=== PATIENT | female | born 1950 | race African-American/Black ===

== ENCOUNTER 2017-03-09 01:35 | Inpatient (IN) | payer BC, MEDICARE ==
[2017-03-09] VITALS (26 sets, daily range): BP systolic 114–206; BP diastolic 77–111
[~2017-03-09] VITALS: Ht 167.6 cm; Wt 65.8 kg
[~2017-03-09 01:35] MED LIST: CLON0.1T PO; METF500T4 PO
--- NOTE | 2017-03-09 01:40 | NUR ---
PT A/OX4 PT C/O SOB AND DIFFICULTY BREATHING X 3 DAYS, PT STATES SHE HAS BEEN USING HER INHALERS AND HER NEBULIZERS BUT THEY ARE NOT WORKING AND THE SOB IS GETTING WORSE, PT ON MONITOR, RT AND MD AT BEDSIDE, IV PLACED, LABS DRAWN, PT IN GOWN, PT GIVEN 5MG OF ALBUTEROL PRIOR TO ARRIVAL BY EMS, WILL CONTINUE TO MONITOR.
[2017-03-09] MEDS ORDERED: IV NS 0.9% 500 ML IV ONE (01:45)
[2017-03-09] MEDS ORDERED: IV SET PRIMARY 1 EA INFUS.SET MC ONE (01:45)
[2017-03-09] MEDS ORDERED: ASPIRIN 81 MG TAB.CHEW ONE (01:45)
[2017-03-09] MEDS ORDERED: methylPREDNISolone SOD SUCC 125 MG/2ML VIAL ONE (01:45)
[2017-03-09] MEDS ORDERED: IPRATROPIUM NEB FS 0.5 MG/2.5 ML AMPUL.NEB ONE (01:47)
[2017-03-09] MEDS ORDERED: ALBUTEROL FS 2.5 MG/3 ML VIAL.NEB ONE (01:47)
[2017-03-09] MEDS ORDERED: NITROGLYCERIN PACKET 1 GM PACKET ONE (01:52)
[2017-03-09 01:58] LABS: BASOPHILS # (AUTO) 0.1 /CMM (0.0-0.2); EOSINOPHILS # (AUTO) 1.2 /CMM (0.0-0.7); EOSINOPHILS % (AUTO) 13.6 % (0.0-6.0); HEMATOCRIT 44 % (33-45); HEMOGLOBIN 14.1 g/dL (11.5-14.8); LYMPHOCYTES # (AUTO) 2.6 /CMM (0.8-4.8); LYMPHOCYTES % (AUTO) 30.3 % (20.0-44.0); MEAN CORPUSCULAR HEMOGLOBIN 30 PG (26.0-33.0); MEAN CORPUSCULAR HGB CONC 32 g/dl (31.0-36.0); MEAN CORPUSCULAR VOLUME 95 fL (82-100); MONOCYTES # (AUTO) 0.6 /CMM (0.1-1.30); MONOCYTES % (AUTO) 6.7 % (2.0-12.0); NEUTROPHILS # (AUTO) 4.2 /CMM (1.8-8.9); NEUTROPHILS % (AUTO) 48.4 % (43.0-81.0); PLATELET COUNT (AUTO) 381 /CMM (150-450); RDW COEFFICIENT OF VARIATION 14.9 (11.5-15.0); RED BLOOD CELL COUNT(AUTO) 4.66 MIL/uL (4.0-5.2); WHITE BLOOD COUNT (AUTO) 8.7 K/uL (4.3-11.0)
[2017-03-09] MEDS ORDERED: ALBUTEROL FS 2.5 MG/3 ML VIAL.NEB CONTNEB ONE (02:00)
[2017-03-09] MEDS ORDERED: NITROGLYCERIN PACKET 1 GM PACKET TD ONE (02:00)
[2017-03-09] MEDS ORDERED: IPRATROPIUM NEB FS 0.5 MG/2.5 ML AMPUL.NEB NEB ONE (02:00)
[2017-03-09] MEDS ORDERED: ASPIRIN 81 MG TAB.CHEW PO ONE (02:00)
[2017-03-09] MEDS ORDERED: methylPREDNISolone SOD SUCC 125 MG/2ML VIAL IV ONE (02:00)
[2017-03-09] MEDS ORDERED: IV NS 0.9% 500 ML BAG IV ONE (02:00)
--- NOTE | 2017-03-09 02:04 | NUR ---
RT NOTE PT PLACED ON BIPAP PER MD WAITE. SETTINGS PRESCRIBED. ALARMS SET PER PROTOCOL AND AUDIBLE. AMBU BAG AT BEDSIDE. PT AWAKE AND ALERT. NO DISTRESS NOTED AT MOMENT, WILL CONTINUE TO MONITOR. Addendum: 03/09/17 at 0207 by ABRAHAM MCKENZIE RT Amended: Links added.
[2017-03-09 02:08] LABS: POTASSIUM 3.7 mmol/L (3.5-5.1)
[2017-03-09 02:09] LABS: CALCIUM, SERUM 9.2 mg/dL (8.5-10.1); CREATININE 1.2 mg/dL (0.6-1.3)
[2017-03-09 02:16] LABS: TROPONIN I 0.022 ng/mL (0.00-0.056)
[2017-03-09 02:23] LABS: ALBUMIN 3.8 g/dL (3.4-5.0); BILIRUBIN,DIRECT 0.1 mg/dL (0.0-0.2); BILIRUBIN,TOTAL 0.4 mg/dL (0.2-1.0); TOTAL PROTEIN, SERUM 8.5 g/dL (6.4-8.2)
[2017-03-09] MEDS ORDERED: CLONIDINE HCL 0.1 MG TABLET PO ONE (02:30)
[2017-03-09] MEDS ORDERED: TRAMADOL HCL 50 MG TABLET PO ONE (02:30)
[2017-03-09] MEDS ORDERED: ENALAPRILAT DIHYD. (2.5MG/ML) 1.25 MG/ML VIAL IV PRN (03:00)
[2017-03-09] MEDS ORDERED: IV 1/2NS 1000 ML 1,000 ML IV PRN (03:09)
[2017-03-09 03:12] LABS: ABG BASE EXCESS 1.9 mmol/L; ABG OXYGEN SATURATION 98.3 % (92.0-98.5); ABG PCO2 44.1 mmHg (35.0-45.0); ABG PH 7.405 (7.350-7.450); ABG PO2 141.6 mmHg (75.0-100.0); ABG TOTAL HEMOGLOBIN 13.4 G/dL (12.0-16.0); COHb 0.3 % (0.5-1.5); MetHb 0.5 % (0.0-1.5); O2Hb 97.5 % (94.0-97.0); PEEP,BG 5 cm H2O; SITE, ABG Right Radial; VENT MODE, BG ST 15/5 12 30%
[2017-03-09] MEDS ORDERED: TRAMADOL HCL 50 MG TABLET ONE (03:15)
--- NOTE | 2017-03-09 03:25 | NUR ---
Received patient from ED via [facility] via ACLS protocol with c/o SOB and Difficulty Breathing x 3 days.States been using her inhalers and nebulizers but not working anymore.Patient A/O X4.Ambulated from rolanta to bed and made comfortable.Placed on Bipap by RT with settings RATE 12,15/5,FIO2 30%.O2 saturation 96%.HOB elevated.Hooked to nurse monitoring shows SR/ST.BP elevated with expiratory and inspiratory wheezing.But patient verbalized feels a little better at this time.Admission process explained to patient and verbalized understanding.
[2017-03-09] MEDS ORDERED: HYDROCODONE/APAP 5/325MG 1 EACH TABLET PO PRN ×2 (03:30→13:30)
[2017-03-09] MEDS ORDERED: LEVOFLOXACIN 750 MG /D5W 150ML 750 MG in PREMIX 1 EA IV SCH (03:30)
[2017-03-09] MEDS ORDERED: ACETAMINOPHEN 325 MG TABLET PO PRN (03:30)
[2017-03-09] MEDS ORDERED: ONDANSETRON HCL/PF 4 MG/2 ML VIAL IVP PRN (03:30)
[2017-03-09] MEDS ORDERED: MAGNESIUM HYDROXIDE 30 ML UDC PO PRN (03:30)
[2017-03-09] MEDS ORDERED: MAG HYDROX/AL HYDROX/SIMETH 30 ML UDC PO PRN (03:30)
[2017-03-09] MEDS ORDERED: Z GUARD REMEDY 2 OZ OINT TP PRN (03:30)
[2017-03-09] MEDS ORDERED: LEVOFLOXACIN 750 MG /D5W 150ML 0 ML IV ONE (03:43)
[2017-03-09] MEDS ORDERED: IV 1/2NS 1000 ML 1,000 ML IV ONE (03:49)
[2017-03-09] MEDS ORDERED: SECONDARY IV SET 1 EA INFUS.SET MC ONE ×3 (03:50→22:01)
[2017-03-09] MEDS ORDERED: IV SET PRIMARY PUMP SET 1 EA INFUS.SET MC ONE (03:50)
[2017-03-09] MEDS: IV 1/2NS 1000 ML 1,000 ML IV PRN ×2 (03:56→22:07)
[2017-03-09] MEDS ORDERED: hydrALAZINE HCL IV 20 MG VIAL IV ONE (04:00)
[2017-03-09] MEDS ORDERED: DEXTROSE 50%-WATER 50 ML DISP.SYRIN IV PRN (04:00)
--- NOTE | 2017-03-09 04:00 | NUR ---
Patient verbalized she urinate frequently due to lasix and requesting Mehta catheter.GEAR STRAIGHTENER,Shellie notified with order.Fr.#16 Mehta Catheter inserted under aseptic technique draining clear yellow urine.
[2017-03-09] MEDS ORDERED: hydrALAZINE HCL IV 20 MG VIAL ONE (04:01)
--- NOTE | 2017-03-09 04:05 | NUR ---
Patient with elevated BP 206/104,178/103 called to Shellie ARAGON with order and carried out.
--- NOTE | 2017-03-09 04:24 | NUR ---
Karyn from [facility] regarding patient is candidate for severe sepsis criteria. With orders to do Blood Culture and initial lactic acid.If more than 2 then do another lactic acid.
[2017-03-09] MEDS ORDERED: LORAZEPAM INJ 2 MG/ML VIAL ONE (04:41)
[2017-03-09] MEDS: IPRATROPIUM NEB FS 0.5 MG/2.5 ML AMPUL.NEB NEB SCH ×5 (04:44→23:33)
[2017-03-09] MEDS: ALBUTEROL FS 2.5 MG/3 ML VIAL.NEB NEB SCH ×5 (04:44→23:33)
--- NOTE | 2017-03-09 04:46 | NUR ---
Patient anxious and tachycardic HR 120'S-130'S verbalized has panic attack.FOUNTAIN ATTENDANTShellie notified with order and carried.
[2017-03-09] MEDS ORDERED: LORAZEPAM INJ 2 MG/ML VIAL IV ONE (05:00)
[2017-03-09] MEDS ORDERED: CEFEPIME 2 GM in IV D5W 100 ML IV SCH (05:00)
--- NOTE | 2017-03-09 05:00 | NUR ---
Please note: Unable to give Maxipime IVPB at this time.Per Lisa Saravia she has only 1 Gram available.And to wait until 0700 AM when Pharmacist here.
--- NOTE | 2017-03-09 06:00 | NUR ---
Patient requested Bipap to be removed.RT changed to 4L NC and tolerating well.No apparent distress noted at this time.
[2017-03-09 07:17] LABS: EOSINOPHILS % (AUTO) 0.2 % (0.0-6.0); HEMATOCRIT 38 % (33-45); HEMOGLOBIN 12.3 g/dL (11.5-14.8); LYMPHOCYTES # (AUTO) 0.5 /CMM (0.8-4.8); LYMPHOCYTES % (AUTO) 7.1 % (20.0-44.0); MEAN CORPUSCULAR HEMOGLOBIN 31 PG (26.0-33.0); MEAN CORPUSCULAR HGB CONC 32 g/dl (31.0-36.0); MEAN CORPUSCULAR VOLUME 95 fL (82-100); MONOCYTES % (AUTO) 0.2 % (2.0-12.0); NEUTROPHILS # (AUTO) 7.1 /CMM (1.8-8.9); NEUTROPHILS % (AUTO) 92.5 % (43.0-81.0); PLATELET COUNT (AUTO) 351 /CMM (150-450); RDW COEFFICIENT OF VARIATION 14.4 (11.5-15.0); RED BLOOD CELL COUNT(AUTO) 4.03 MIL/uL (4.0-5.2); WHITE BLOOD COUNT (AUTO) 7.7 K/uL (4.3-11.0)
[2017-03-09 07:33] LABS: CALCIUM, SERUM 8.9 mg/dL (8.5-10.1)
[2017-03-09 07:34] LABS: TROPONIN I 0.038 ng/mL (0.00-0.056)
--- NOTE | 2017-03-09 07:37 | NUR ---
Patient resting in no acute distress.VS stable.ST 110.Denies pain.IVF infusing well.Lactic acid 1.5.Report given to ALYSSA ENGLE for continuity of care.
--- NOTE | 2017-03-09 08:00 | NUR ---
ICU/RN INITIAL NOTES,AM RECEIVED REPORT FROM NIGHT NURSE. PT ALERT, AWAKE, FOLLOW COMMANDS. PT 4 LITERS NASAL CANULA, NO ACUTE DISTRESS NOTED AT THIS TIME. PT WAS ON BIPAP OVER NIGHT, NOW TOLERATING NASAL CANULA, WELL. MAINTAINING 02 SAT >95%. PT SINUS TACHY ON TELE. RICH IN PLACE, DRAINING YELLOW URINE. BP ELEVATED, MD AWARE.NEW ORDERS RECEIVED. SAFETY MEASURES TAKEN, BED IN LOW POSITION, SIDE RAILS UP, CALL LIGHT WITHIN REACH. WILL CONTINUE CARE.
[2017-03-09] MEDS: methylPREDNISolone SOD SUCC 125 MG/2ML VIAL IV SCH ×3 (08:12→17:11)
[2017-03-09] MEDS: VALSARTAN 80 MG TABLET PO SCH ×2 (08:13→08:28)
[2017-03-09] MEDS: BLOOD SUGAR DIAGNOSTIC 1 EACH STRIP IN SCH ×4 (08:18→22:00)
[2017-03-09] MEDS: INSULIN REGULAR, HUMAN 100 UNIT/ML 3 ML VIAL SQ PRN ×2 (08:20→12:36)
[2017-03-09] MEDS: HEPARIN SODIUM, PORCINE 5000 UNITS/1 ML VIAL SQ SCH ×2 (08:21→21:00)
[2017-03-09] MEDS: ASPIRIN 81 MG TAB.CHEW PO SCH (08:21)
[2017-03-09] MEDS: PANTOPRAZOLE 40 MG TABLET.DR PO SCH (08:21)
[2017-03-09 08:23] LABS: MAGNESIUM 1.6 mg/dL (1.8-2.4); PHOSPHORUS 2.9 mg/dL (2.5-4.9)
[2017-03-09 08:33] LABS: THYROID STIMULATING HORMONE 0.41 uIU/mL (0.358-3.74)
[2017-03-09] MEDS: LISINOPRIL (10MG) 10 MG TABLET PO SCH ×2 (08:45→17:11)
[2017-03-09] MEDS: CEFEPIME 2 GM in IV D5W 100 ML IV SCH ×2 (10:37→22:07)
--- NOTE | 2017-03-09 11:20 | NUR ---
ICU/RN: RECEIVED ORDERS FOR CTA CHEST TO R/O DISSECTION AND V/Q SCAN. PT REFUSED STATING "I ALMOST ONE TIME WHEN I GOT THAT DYE IN ME. I DON'T WANT ANY TYPE OF DYE IN ME, ORAL OR IV" RISKS VS BENEFITS OF PROCEDURE DISCUSSED WITH PT. PT CONTINUES TO REFUSE PROCEDURE. AWARE. WILL CONTINUE TO MONITOR. NO ACUTE S/S OF DISTRESS NOTED. WILL CONTINUE TO CLOSELY MONITOR
--- NOTE | 2017-03-09 12:20 | NUR ---
ICU/RN: PT REFUSED INSULIN. EDUCATED PT. WILL REINFORCE
[2017-03-09] MEDS: Magnesium 1GM/D5W 100ML PREMIX 100 ML IV SCH ×2 (12:29→13:38)
--- NOTE | 2017-03-09 13:30 | NUR ---
ICU/RN: REPORT ENDORSED TO LEANNA SHAH. PT TRANSFERRED PER ACLS GUIDELINES. ALL NEEDS MET. SAFETY MEASURES TAKEN. ALL BELONGINGS AND MEDICATIONS TRANSFERRED WITH PT.
--- NOTE | 2017-03-09 13:42 | NUR ---
CORE SHAPER SIDES NOTE RECEIVED FROM ICU ALERT ,ORIENTED X3, PLACED ON TELE MONITOR SR 94, VS TAKEN NO SOB NOTED, PLACED ON IVF ORDERED HOSPITAL ORIENTATION DONE,CALL LIGHT WITHIN REACH , ALL NEEDS ATTENDED
[2017-03-09] MEDS: TRAMADOL HCL 50 MG TABLET PO PRN ×3 (14:23→22:19)
--- NOTE | 2017-03-09 14:30 | NUR ---
ONLINE PROGRAM COORDINATOR NOTE REPORT GIVEN TO HOWIE SHAH
--- NOTE | 2017-03-09 14:35 | NUR ---
PURLER NOTE C\O GENERALIZED PAIN BODY ,CALLED TO CORMIER WITH ORDER TRAMADOL ORDER GARRIED OUT , GIVEN ORDERED ,CLARIFIED SOLUMEDROL ORDER, NO ACTIVE ALLERGY FROM PREDNISONE OK TO GIVE PHARMACIST AWARE
--- NOTE | 2017-03-09 15:42 | NUR ---
RN INITIAL NOTE RECEIVED PT TRANSFER OF CARE FROM [facility]. PT AWAKE, ALERT AND ORIENTED. ABLE TO MAKE NEEDS KNOWN. NO S/S OF RESPIRATORY DISTRESS OR SOB. RESPIRATIONS ARE EVEN AND UNLABORED. NO IV SITE AT THIS TIME. NO S/S OF PAIN OR DISCOMFORT. SKIN IS WARM AND DRY TO TOUCH. CALL LIGHT AND BELONGINGS WITHIN REACH. SAFETY PRECAUTIONS IMPLEMENTED. BED IN LOCKED, LOW POSITION WITH TWO SIDE RAILS UP. WILL CONTINUE TO MONITOR.
[2017-03-09] MEDS: METFORMIN 500 MG TABLET PO SCH (17:11)
--- NOTE | 2017-03-09 19:17 | NUR ---
RN CLOSING NOTE ALL MD ORDERS CARRIED OUT. PT KEPT CLEAN AND DRY. SAFETY PRECAUTIONS IN PLACE AT ALL TIMES. REPORT GIVEN TO PM RN FOR ZOLTAN,.
--- NOTE | 2017-03-09 19:30 | NUR ---
RN INITIAL NOTES RECEIVED REPORT FROM DAY NURSE HOWIE. PATIENT IS AWAKE, ALERT AND ORIENTED X4, FOLLOWS COMMANDS. PATIENT ON O2 @ 4 LPM VIA NASAL CANULA, NO ACUTE DISTRESS NOTED AT THIS TIME. MAINTAINING 02 SAT >94%. PT SINUS TACHY ON TELE. RICH IN PLACE, DRAINING YELLOW URINE. SAFETY MEASURES TAKEN, BED IN LOWEST AND LOCKED POSITION, SIDE RAILS UP, CALL LIGHT WITHIN REACH. WILL CONTINUE TO CLOSELY MONITOR
--- NOTE | 2017-03-09 20:45 | NUR ---
RN NOTES TECH AT BEDSIDE TO PERFORM VENOUS DOPPLER, RESULT NEGATIVE
--- NOTE | 2017-03-09 21:00 | NUR ---
RN NOTES PATIENT REFUSED BLOOD SUGAR TO BE CHECKED, "STATING THEY KEEP CHECKING IT ALL THE TIME. I DON'T WANT TO BE POKED AGAIN, AND I ALREADY TOOK MY METFORMIN, I DON'T WANT INSULIN EITHER" PATIENT ALSO REFUSED HEPARIN, STATING "I ALREADY TOOK IT EARLIER THIS MORNING, I DONT WANT IT, AND THE DOPPLER WAS NEGATIVE, I DONT WANT IT." PATIENT TEACHING RENDERED REGARDING THE RISKS AND CONSEQUENCES OF REFUSING PRESCRIBED MEDICATION. PATIENT VERBALIZES UNDERSTANDING OF TEACHING, BUT STILL STRONGLY REFUSES. WILL NOTIFY MD AND CLOSELY MONITOR
[2017-03-10] VITALS: BP 131/84
[2017-03-10] MEDS: ALBUTEROL FS 2.5 MG/3 ML VIAL.NEB NEB SCH ×4 (03:19→10:53)
[2017-03-10] MEDS: IPRATROPIUM NEB FS 0.5 MG/2.5 ML AMPUL.NEB NEB SCH ×4 (03:19→10:53)
--- NOTE | 2017-03-10 03:30 | NUR ---
RN NOTES PATIENT REFUSED BREATHING TREATMENT, STATING "LEAVE ME ALONE, IM TRYING TO SLEEP." EXPLAINED RISKS AND CONSEQUENCES OF MEDICATION REFUSAL. PATIENT VERBALIZES UNDERSTANDING, BUT STILL STRONGLY REFUSES
--- NOTE | 2017-03-10 04:00 | NUR ---
RN NOTES PATIENT REFUSES VITAL SIGNS TO BE CHECKED AT THIS TIME, STATING "LEAVE ME ALONE, I'M TRYING TO SLEEP"
--- NOTE | 2017-03-10 05:45 | NUR ---
RN NOTES PATIENT WOKE UP WITH SOB, WHEEZES HEARD UPON AUSCULTATION. JESSICA PEDROZA AT BEDSIDE TO ADMINISTER BREATHING TREATMENT.
--- NOTE | 2017-03-10 07:10 | NUR ---
RN CLOSING NOTES PATIENT RESTING IN BED AT THIS TIME, ASKING TO SPEAK TO THE MD SOON POSSIBLE, BREATHING TREATMENT ADMINISTERED BY RT. WILL ENDORSE THE PATIENT TO THE AM SHIFT NURSE FOR ZOLTAN
--- NOTE | 2017-03-10 07:15 | NUR ---
RN INITIAL NOTE PT RECEIVED IN BED, AWAKE ALERT AND ORIENTED. ABLE TO MAKE NEEDS KNOWN. SINUS TACHY ON TELE MONITOR. RICH CATHETER DRAININING TO GRAVITY. SKIN WARM AND DRY TO TOUCH. IV SITE FLUSHED AND PATENT. SAFETY PRECAUTIONS IN PLACE AT ALL TIMES. CALL LIGHT AND BELONGINGS WITHIN EASY REACH. WILL CONTINUE TO MONITOR.
[2017-03-10 08:00] VITALS: BP 136/63
[2017-03-10] MEDS: ASPIRIN 81 MG TAB.CHEW PO SCH (08:34)
[2017-03-10] MEDS: BLOOD SUGAR DIAGNOSTIC 1 EACH STRIP IN SCH (08:34)
[2017-03-10] MEDS: TRAMADOL HCL 50 MG TABLET PO PRN (08:35)
[2017-03-10] MEDS: METFORMIN 500 MG TABLET PO SCH (08:35)
[2017-03-10] MEDS: PANTOPRAZOLE 40 MG TABLET.DR PO SCH (08:35)
[2017-03-10 08:37] VITALS: BP 136/63
[2017-03-10] MEDS: LISINOPRIL (10MG) 10 MG TABLET PO SCH (08:37)
[2017-03-10] MEDS: methylPREDNISolone SOD SUCC 125 MG/2ML VIAL IV SCH (08:38)
[2017-03-10] MEDS: CEFEPIME 2 GM in IV D5W 100 ML IV SCH (08:38)
[2017-03-10] MEDS: HEPARIN SODIUM, PORCINE 5000 UNITS/1 ML VIAL SQ SCH (08:39)
[2017-03-10] MEDS: INSULIN REGULAR, HUMAN 100 UNIT/ML 3 ML VIAL SQ PRN (08:40)
[2017-03-10 09:27] LABS: *SPE A/G RATIO 1.1 (0.7-1.7); *SPE ALBUMIN 3.4 g/dL (2.9-4.4); *SPE ALPHA-1-GLOBULIN 0.2 g/dL (0.0-0.4); *SPE GLOBULIN, TOTAL 3.1 g/dL (2.2-3.9); *SPE M-SPIKE Not Observed g/dL (Not Observed); *SPE PROTEIN TOTAL 6.5 g/dL (6.0-8.5); *SPEGAMMA GLOBULIN 0.9 g/dL (0.4-1.8)
[2017-03-10 09:58] LABS: BASOPHILS # (AUTO) 0.1 /CMM (0.0-0.2); BASOPHILS % (AUTO) 0.3 % (0.0-2.0); EOSINOPHILS % (AUTO) 0.1 % (0.0-6.0); HEMATOCRIT 37 % (33-45); HEMOGLOBIN 11.9 g/dL (11.5-14.8); LYMPHOCYTES # (AUTO) 1.5 /CMM (0.8-4.8); LYMPHOCYTES % (AUTO) 7.5 % (20.0-44.0); MEAN CORPUSCULAR HEMOGLOBIN 31 PG (26.0-33.0); MEAN CORPUSCULAR HGB CONC 32 g/dl (31.0-36.0); MEAN CORPUSCULAR VOLUME 95 fL (82-100); MONOCYTES # (AUTO) 0.5 /CMM (0.1-1.30); MONOCYTES % (AUTO) 2.5 % (2.0-12.0); NEUTROPHILS # (AUTO) 18.4 /CMM (1.8-8.9); NEUTROPHILS % (AUTO) 89.6 % (43.0-81.0); PLATELET COUNT (AUTO) 358 /CMM (150-450); RDW COEFFICIENT OF VARIATION 14.3 (11.5-15.0); RED BLOOD CELL COUNT(AUTO) 3.92 MIL/uL (4.0-5.2); WHITE BLOOD COUNT (AUTO) 20.6 K/uL (4.3-11.0)
[2017-03-10 10:14] LABS: BILIRUBIN,TOTAL 0.3 mg/dL (0.2-1.0); CALCIUM, SERUM 8.8 mg/dL (8.5-10.1); CREATININE 1.2 mg/dL (0.6-1.3); MAGNESIUM 1.9 mg/dL (1.8-2.4); PHOSPHORUS 3.7 mg/dL (2.5-4.9); POTASSIUM 4.4 mmol/L (3.5-5.1); TOTAL PROTEIN, SERUM 6.9 g/dL (6.4-8.2)
[2017-03-10 10:17] LABS: TROPONIN I 0.041 ng/mL (0.00-0.056)
[2017-03-10 10:23] LABS: VIT D, 25-HYDROXY 41.1 ng/mL (30.0-100.0)
[2017-03-10 10:37] LABS: THYROID STIMULATING HORMONE 0.29 uIU/mL (0.358-3.74)
[2017-03-10 10:49] LABS: BAND % (MANUAL) 2 % (0.0-5.0); LYMPHOCYTES % (MANUAL) 10 % (16-48); MONOCYTES % (MANUAL) 3 % (0-11.0); NEUTROPHILS % (MANUAL) 85 (42-76)
[2017-03-10 10:52] LABS: PLATELET ESTIMATE ADEQUATE
--- NOTE | 2017-03-10 13:18 | NUR ---
RN CLOSING NOTE PT LEFT AMA. PAPERWORK COMPLETED. REFUSED PICTURES. IV, ID AND RICH CATHETER REMOVED. PICKED UP BY TAXI.
== END 2017-03-10 13:14 | disposition left against medical advice (07) | DRG 140 ==
LOC: ER 01:36 → ICU 02:52 → TELE1 13:20
PROVIDERS: ADMIT Contractor; ATTEND Contractor
PROC: 5A09357 Assistance with Respiratory Ventilation, Less than 24 Consecutive Hours, Continuous Positive Airway Pressure (ICD-10-PCS; principal; 2017-03-09)
DX: J44.1 Chronic obstructive pulmonary disease with (acute) exacerbation (principal); J96.01 Acute respiratory failure with hypoxia; J96.02 Acute respiratory failure with hypercapnia; E87.2 Acidosis; K21.9 Gastro-esophageal reflux disease without esophagitis; E11.65 Type 2 diabetes mellitus with hyperglycemia; I10 Essential (primary) hypertension; J44.0 Chronic obstructive pulmonary disease with (acute) lower respiratory infection; Z87.891 Personal history of nicotine dependence; C34.90 Malignant neoplasm of unspecified part of unspecified bronchus or lung; I70.0 Atherosclerosis of aorta; J20.9 Acute bronchitis, unspecified; T38.0X5A Adverse effect of glucocorticoids and synthetic analogues, initial encounter
CPT/HCPCS: 36415; 36600; 70220-TC; 71010-TC; 80048-TC; 80053-TC; 80061-TC; 80076-TC; 82306; 82962-TC; 83605-TC; 83735-TC; 83880; 84100-TC; 84155; 84165; 84439-TC; 84443-TC; 84484-TC; 85025-TC; 85378-TC; 87040-TC; 87081-TC; 93307-TC; 93970-TC; A4216; A4606; A6402; J0360; J0692; J1644; J1815; J1956; J2060; J2930; J3475; J3490; J7040; J7060; Z7610

== ENCOUNTER 2017-03-18 07:30 | Inpatient (IN) | payer BC, MEDICARE ==
[~2017-03-18] VITALS: Ht 167.6 cm; Wt 76.2 kg
--- NOTE | 2017-03-18 07:30 | NUR ---
BIB RA C/O WHEEZING AND SOB FROM HOME. GIVEN BREATHING TX IN FIELD. NAD NOTED. PT AAO X4, AMB WITH STEADY GAIT. PAGED RT. DR STALEY AT BEDSIDE. PT PLACED IN GOWN AND MONITOR. CONTINUE TO MONITOR.
[2017-03-18] MEDS ORDERED: ALBUTEROL FS 2.5 MG/3 ML VIAL.NEB ONE (07:39)
[2017-03-18] MEDS ORDERED: IPRATROPIUM NEB FS 0.5 MG/2.5 ML AMPUL.NEB ONE (07:39)
[2017-03-18] MEDS ORDERED: Magnesium 1GM/D5W 100ML PREMIX 200 ML IV ONE ×2 (07:44→07:49)
[2017-03-18] MEDS ORDERED: IV SET PRIMARY PUMP SET 1 EA INFUS.SET MC ONE ×3 (07:49→14:50)
[2017-03-18] MEDS ORDERED: CEFTRIAXONE 1GM BAG (ER ONLY) 50 ML IV ONE (07:49)
[2017-03-18] MEDS ORDERED: ASPIRIN 325 MG TABLET ONE (07:49)
[2017-03-18] MEDS ORDERED: methylPREDNISolone SOD SUCC 125 MG/2ML VIAL ONE (07:49)
[2017-03-18 07:59] LABS: BASOPHILS % (AUTO) 0.3 % (0.0-2.0); EOSINOPHILS # (AUTO) 0.6 /CMM (0.0-0.7); EOSINOPHILS % (AUTO) 6.4 % (0.0-6.0); HEMATOCRIT 40 % (33-45); HEMOGLOBIN 12.7 g/dL (11.5-14.8); LYMPHOCYTES % (AUTO) 32.6 % (20.0-44.0); MEAN CORPUSCULAR HEMOGLOBIN 30 PG (26.0-33.0); MEAN CORPUSCULAR HGB CONC 32 g/dl (31.0-36.0); MEAN CORPUSCULAR VOLUME 95 fL (82-100); MONOCYTES # (AUTO) 0.8 /CMM (0.1-1.30); MONOCYTES % (AUTO) 8.3 % (2.0-12.0); NEUTROPHILS # (AUTO) 4.8 /CMM (1.8-8.9); NEUTROPHILS % (AUTO) 52.4 % (43.0-81.0); PLATELET COUNT (AUTO) 357 /CMM (150-450); RDW COEFFICIENT OF VARIATION 15.3 (11.5-15.0); RED BLOOD CELL COUNT(AUTO) 4.19 MIL/uL (4.0-5.2); WHITE BLOOD COUNT (AUTO) 9.1 K/uL (4.3-11.0)
[2017-03-18] MEDS ORDERED: methylPREDNISolone SOD SUCC 125 MG/2ML VIAL IV ONE (08:00)
[2017-03-18] MEDS ORDERED: IV NS 0.9% 1,000 ML BAG IV ONE (08:00)
[2017-03-18] MEDS ORDERED: AZITHROMYCIN 500 MG in IV D5W 250 ML IV ONE (08:00)
[2017-03-18] MEDS ORDERED: IPRATROPIUM NEB FS 0.5 MG/2.5 ML AMPUL.NEB NEB ONE (08:00)
[2017-03-18] MEDS ORDERED: ASPIRIN 325 MG TABLET PO ONE (08:00)
[2017-03-18] MEDS ORDERED: CEFTRIAXONE 1GM BAG (ER ONLY) 1 GM/50 ML PIGGYBACK IV ONE (08:00)
[2017-03-18] MEDS ORDERED: ALBUTEROL FS 2.5 MG/3 ML VIAL.NEB CONTNEB ONE (08:00)
[2017-03-18 08:09] LABS: CALCIUM, SERUM 8.7 mg/dL (8.5-10.1); CREATININE 1.4 mg/dL (0.6-1.3); POTASSIUM 3.9 mmol/L (3.5-5.1)
[2017-03-18 08:17] LABS: TROPONIN I 0.027 ng/mL (0.00-0.056)
[2017-03-18 08:21] LABS: ALBUMIN 3.4 g/dL (3.4-5.0); BILIRUBIN,DIRECT 0.1 mg/dL (0.0-0.2); BILIRUBIN,TOTAL 0.4 mg/dL (0.2-1.0); TOTAL PROTEIN, SERUM 7.7 g/dL (6.4-8.2)
[2017-03-18] MEDS ORDERED: TRAM50TA2 PO (08:48)
[2017-03-18] MEDS ORDERED: PANT40TA2 PO (08:48)
[2017-03-18] MEDS ORDERED: LISI-603 PO (08:48)
[2017-03-18] MEDS ORDERED: TRAMADOL HCL 50 MG TABLET ONE (08:56)
[2017-03-18] MEDS ORDERED: TRAMADOL HCL 50 MG TABLET PO ONE (09:00)
[2017-03-18] MEDS ORDERED: IV NS 0.9% 1,000 ML ONE (09:00)
--- NOTE | 2017-03-18 09:09 | NUR ---
PAGED DR ANGELA MARTINEZ FOR ADMISSION
--- NOTE | 2017-03-18 09:16 | NUR ---
REPORT GIVEN TO MARQUITA SHAH FOR ZOLTAN
[2017-03-18 09:55] VITALS: BP 146/90
[2017-03-18 10:00] VITALS: BP 146/90
--- NOTE | 2017-03-18 10:05 | NUR ---
MS/WRIST CLOSER NOTES ADMITTED THIS 66 Y/O FEMALE FROM ER, TO RM # [id number], WITH ADMISSION DX:COPD EXACERBATION, Hx: COPD, HTN, DM (TYPE 2), CHOLECYSTECTOMY, UNDER CARE OF DR. ANGELA MARTINEZ. PATIENT IS A/O x 4, NO SOB, RESPIRATION EVEN, UNLABORED, OXYGEN APPLIED VIA N/C 2 L/M, WITH SATURATION 100%, DENIES PAIN. BOTH PERIPHERAL IV LINES INTACT, PATENT. ORIENTED TO THE ROOM CALL LIGHT SYSTEM. FULL BODY ASSESSMENT DONE, KEPT CLEAN DRY, COMFORTABLE, NEEDS MET IN TIMELY MANNER WITH CALL LIGHT WITHIN EASY REACH.
[2017-03-18] MEDS ORDERED: MORPHINE SULFATE INJ 2 MG/ML DISP.SYRIN IV PRN (11:30)
[2017-03-18] MEDS ORDERED: DEXTROSE 50%-WATER 50 ML DISP.SYRIN IV PRN (11:30)
[2017-03-18] MEDS ORDERED: Z GUARD REMEDY 2 OZ OINT TP PRN (11:30)
[2017-03-18] MEDS ORDERED: ZOLPIDEM TARTRATE 5 MG TABLET PO PRN (11:30)
[2017-03-18] MEDS ORDERED: ACETAMINOPHEN 325 MG TABLET PO PRN (11:30)
[2017-03-18] MEDS ORDERED: MAGNESIUM HYDROXIDE 30 ML UDC PO PRN (11:30)
[2017-03-18] MEDS: MONTELUKAST SODIUM (10MG) 10 MG TABLET PO SCH ×2 (11:30→21:41)
[2017-03-18] MEDS ORDERED: ONDANSETRON HCL/PF 4 MG/2 ML VIAL IVP PRN (11:30)
[2017-03-18] MEDS: ENOXAPARIN SODIUM 30 MG/0.3 ML DISP.SYRIN SQ SCH (12:00)
[2017-03-18] MEDS ORDERED: LEVOFLOXACIN (750 MG) 750 MG TABLET PO SCH (12:00)
[2017-03-18] MEDS: BLOOD SUGAR DIAGNOSTIC 1 EACH STRIP IN SCH ×3 (12:05→21:41)
[2017-03-18] MEDS: INSULIN REGULAR, HUMAN 100 UNIT/ML 3 ML VIAL SQ PRN ×3 (12:12→21:51)
[2017-03-18] MEDS: methylPREDNISolone SOD SUCC 125 MG/2ML VIAL IV SCH ×2 (12:13→17:14)
[2017-03-18] MEDS: IPRATROPIUM NEB FS 0.5 MG/2.5 ML AMPUL.NEB NEB SCH ×3 (12:17→19:53)
[2017-03-18] MEDS: ALBUTEROL FS 2.5 MG/3 ML VIAL.NEB NEB SCH ×3 (12:17→19:53)
--- NOTE | 2017-03-18 12:20 | NUR ---
RN NOTES BLOOD SUGAR CHECKED BEFORE DINNER 164, 3 UNITS REGULAR INSULIN COVERAGE GIVEN PER SLIDING SCALE, NO CHANGES IN APPETITE NOTED, REFUSED LOVENOX INJECTION, AND ABG LAB TEST, EXPLAINED RISKS AND BENEFITS, VERBALIZED UNDERSTANDING, STRONGLY REFUSING, MADE AWARE
--- NOTE | 2017-03-18 12:20 | NUR ---
RT PT REFUSED ABG AT THIS TIME. SpO2 99%, HR 87. NO SIGNS OF DISTRESS NOTED AT THIS TIME. RN NOTIFIED AND AWARE. WILL CONTINUE TO MONITOR THE PATIENT FOR ANY CHANGES.
--- NOTE | 2017-03-18 13:05 | NUR ---
RN NOTES DR. MILLER AGREED TO INSERT F/C PER PATIENT'S REQUEST. PROCEDURE DONE, PATIENT TOLERATED WELL, ASEPTIC TECHNIQUES IMPLEMENTED THROUGHOUT PROCEDURE. , NOTED YELLOW, CLEAR URINE OUTPUT, 150 CC, WITHOUT SEDIMENTS. DENIES PAIN, COMFORTABLE, NEEDS MET, WITH CALL LIGHT WITHIN EASY REACH
[2017-03-18] MEDS: TRAMADOL HCL 50 MG TABLET PO PRN ×2 (14:57→22:07)
[2017-03-18] MEDS: IV NS 0.9% 1,000 ML IV PRN (15:43)
[2017-03-18 16:00] VITALS: BP 140/89
[2017-03-18] MEDS: LISINOPRIL (20MG) 20 MG TABLET PO SCH (16:45)
[2017-03-18] MEDS: FLUTICASONE/SALMETEROL DISKUS IH SCH ×2 (16:52→17:13)
--- NOTE | 2017-03-18 16:58 | NUR ---
RN NOTES LISINOPRIL ADMINISTERED ORDERED X1 PER PATIENT'S REQUEST, D/T PATIENT MISSED MORNING DOSE, BLOOD PRESSURE 140/89, 98, NO SOB, NO HEADACHE, DENIES CHEST PAIN, WILL CONTINUE TO MONITOR, AWARE
[2017-03-18] MEDS ORDERED: METFORMIN 500 MG TABLET PO SCH (17:00)
--- NOTE | 2017-03-18 17:21 | NUR ---
RN NOTES BLOOD SUGAR CHECKED BEFORE DINNER, 188, 3 UNITS REGULAR INSULIN GIVEN PER SLIDING SCALE, WITH EXCELLENT APPETITE
--- NOTE | 2017-03-18 18:58 | NUR ---
MS/RN CLOSING NOTES PATIENT IS IN THE BED, AWAKE, ALERT, ABLE TO MAKE NEEDS, NO SOB, DENIES CHEST PAIN, NO DISTRESS NOTED , COMFORTABLY RESTING IN THE BED, OXYGEN IN PLACE VIA N/C DELIVERING 2L/M CONTINUOUSLY, OS SATURATION 100 %. F/C INTACT, WITH 275 ML URINE OUTPUT, CLEAR YELLOW, WITHOUT SEDIMENTS. DENIES PAIN OR DISCOMFORT. KEPT CLEAN, DRY, COMFORTABLE, NEEDS MET IN TIMELY MANNER, BED IN LOW POSITION 2 SR UP FOR SAFETY, WITH CALL LIGHT WITHIN EASY REACH ALL THE TIME. ENDORSED TO THE MATERIAL SPREADER NURSE FOR ZOLTAN
--- NOTE | 2017-03-18 20:00 | NUR ---
RECEIVED PATIENT IN BED, ALERT AND ORIENTED X4, CALM, NO SOB, NO RESPIRATORY DISTRESS, ON O2 AT 2LPM VIA NC, ABDOMEN SOFT AND NON-TENDER, ACTIVE BOWEL SOUNDS, RIGHT WRIST PERIPHERAL LINE IS PATENT AND INFUSING WELL, RICH CATHETER IS DRAINING WELL OF CLEAR AND YELLOW URINE. KEPT SAFE AND COMFORTABLE, CALL LIGHT WITHIN REACH.
[2017-03-18 20:14] VITALS: BP 138/82
[2017-03-18 20:21] VITALS: BP 138/82
[2017-03-18 22:00] VITALS: BP 138/82
--- NOTE | 2017-03-18 22:30 | NUR ---
NOTED ORDER FROM DR. MARTINEZ REGARDING MRSA ISOLATION. CHARGE NURSE REVIEWED PREVIOUS MRSA SURVEILLANCE REPORT, PATIENT IS NEGATIVE TO MRSA. WILL CLARIFY WITH DR MARTINEZ.
[2017-03-19] MEDS: IPRATROPIUM NEB FS 0.5 MG/2.5 ML AMPUL.NEB NEB SCH ×7 (00:17→23:48)
[2017-03-19] MEDS: ALBUTEROL FS 2.5 MG/3 ML VIAL.NEB NEB SCH ×7 (00:17→23:48)
[2017-03-19] MEDS: IV NS 0.9% 1,000 ML IV PRN (04:37)
--- NOTE | 2017-03-19 05:42 | NUR ---
PATIENT REFUSED BLOOD DRAW, WILL TRY AGAIN LATER
[2017-03-19] MEDS: BLOOD SUGAR DIAGNOSTIC 1 EACH STRIP IN SCH ×4 (06:17→21:12)
[2017-03-19] MEDS: INSULIN REGULAR, HUMAN 100 UNIT/ML 3 ML VIAL SQ PRN (06:26)
--- NOTE | 2017-03-19 06:39 | NUR ---
PATIENT IN BED, ALERT AND AWAKE, NO SOB, NO RESPIRATORY DISTRESS, TOLERATING 02 AT 2LPM VIA NC, NO ADVERSE CHANGE OF CONDITION DURING SHIFT, NEEDS ATTENDED, CALL LIGHT WITHIN REACH.
--- NOTE | 2017-03-19 07:13 | NUR ---
MS/RN NOTES RECEIVED PATIENT IN BED, SLEEPING, NO /SX SOB, NO DISTRESS, OXYGEN IN PLACE VIA N/C 2 L/M, IV LINE INTACT ON RIGHT WRIST, WITH N/S 0.9% 75CC/H. COMFORTABLE IN THE BED, HOB ELEVATED, 2 SR UP FOR SAFETY, WITH CALL LIGHT WITHIN EASY REACH. WILL CONTINUE TO MONITOR ACCORDINGLY
[2017-03-19] MEDS ORDERED: PANTOPRAZOLE 40 MG TABLET.DR PO SCH (07:30)
[2017-03-19 08:00] VITALS: BP 129/79
[2017-03-19] MEDS: LISINOPRIL (20MG) 20 MG TABLET PO SCH (08:52)
[2017-03-19] MEDS: CEFTRIAXONE 1 G in IV D5W 50 ML IV SCH (08:52)
[2017-03-19] MEDS: TRAMADOL HCL 50 MG TABLET PO PRN ×2 (08:55→15:21)
[2017-03-19] MEDS: methylPREDNISolone SOD SUCC 125 MG/2ML VIAL IV SCH ×3 (08:55→17:52)
[2017-03-19] MEDS: PANTOPRAZOLE 40 MG TABLET.DR PO SCH (08:55)
[2017-03-19] MEDS: FLUTICASONE/SALMETEROL DISKUS IH SCH ×2 (08:55→18:02)
[2017-03-19] MEDS ORDERED: LISINOPRIL (20MG) 20 MG TABLET PO SCH (09:00)
[2017-03-19] MEDS ORDERED: SECONDARY IV SET 1 EA INFUS.SET MC ONE (09:08)
[2017-03-19 10:00] VITALS: BP 129/79
[2017-03-19] MEDS: ENOXAPARIN SODIUM 30 MG/0.3 ML DISP.SYRIN SQ SCH (12:00)
--- NOTE | 2017-03-19 12:12 | NUR ---
ALYSSA NOTES BLOOD SUGAR CHECKED, 149, INSULIN COVERAGE REFUSED, RISKS AND BENEFITS EXPLAINED, VERBALIZED UNDERSTANDING, STRONGLY REFUSING, AWARE. Addendum: 03/19/17 at 1215 by MICKEY ROSS RN PATIENT REFUSED LOVENOX INJECTION, RISKS AND BENEFITS EXPLAINED, MD BEJARANO
--- NOTE | 2017-03-19 13:16 | NUR ---
Social service consult requested by SUJEY Medrano for housing issues. Per H&P report by Dr. Fabian, patient is a 66-year old female with a PMHx of asthma, hypertension, CAD, COPD, diabetes mellitus, and TMJ. Patient currently lives in an apartment with her daughter. She reported being worried about her current housing situation. Patient was admitted to [facility] for COPD exacerbation. SW met with patient at bedside. She is alert and oriented x4. She appeared disheveled, her mood was euthymic, and her affect was congruent. Her thought process was coherent and goal oriented. She reported that she paid here rent and that her landlord is reporting that he lost it or did not receive it. Pt is worried she may be evicted. Pt reports have evidence that money order was sent to landlord. SW asked patient if she wanted the SW to assist and pt refused assistance. She stated that she was frustrated and wanted someone to speak with about. SW provided patient with emotional support/counseling. Patient then requested resources. SW agreed to provide patient with resources: dental, vision, and housing. Pt reported that she would like to be discharged back home: [address]; [place] [address]. Pt reported that she would need assistance with transportation due to a lack of funds.
[2017-03-19 16:02] VITALS: BP 151/81
--- NOTE | 2017-03-19 17:30 | NUR ---
RN NOTES PATIENT REFUSED BLOOD SUGAR CHECKING BEFORE DINNER, EXPLAINED RISKS AND CONSEQUENCES, VERBALIZED UNDERSTANDING, STRONGLY REFUSING
--- NOTE | 2017-03-19 19:13 | NUR ---
RN CLOSING NOTES PATIENT IS IN THE BED, AWAKE, ALERT, NO SOB, NO CHEST PAIN, RESTING COMFORTABLY. IV LINE ON RIGHT HAND INTACT, PATENT, RICH CATHETER WITH CLEAN YELLOW URINE NO SEDIMENTS, 950 ML OUTPUT. PAIN MEDICATION ADMINISTERED PRN PER PATIENT'S REQUEST. NEEDS MET IN TIMELY MANNER, KEPT CLEAN, DRY WITH CALL LIGHT WITHIN EASY REACH. WILL ENDORSE TO THE IN STORE BANKER NURSE FOR ZOLTAN ACCORDINGLY TO ENDORSE TO MORNING NURSE FOR TRAMADOL, ATROVENT, IPRATROPIUM, SOLU-MEDROL PRESCRIPTION ORDERS ,TO TAKE HOME TOMORROW PER PATIENTS REQUEST.
--- NOTE | 2017-03-19 19:30 | NUR ---
RN NOTES RECEIVED PATIENT IN BED AWAKE, AO X 3, ABLE TO MAKE NEEDS KNOWN. NO ACUTE DISTRESS NOTED. IV SITE PATENT, INTACT; IVF INFUSING ORDERED. NO SYMPTOMS OF HYPER/HYPOGLYCEMIA. RICH CATH PATENT, INTACT; DRAINING CLEAR YELLOW URINE. ON LOW BED WITH BILATERAL UPPER SIDE RAILS UP. CALL LIGHT WITHIN EASY REACH. WILL CONTINUE TO MONITOR.
[2017-03-19 20:00] VITALS: BP 147/93
[2017-03-19] MEDS: MONTELUKAST SODIUM (10MG) 10 MG TABLET PO SCH (21:12)
[2017-03-20] MEDS: IPRATROPIUM NEB FS 0.5 MG/2.5 ML AMPUL.NEB NEB SCH ×4 (03:30→15:30)
[2017-03-20] MEDS: ALBUTEROL FS 2.5 MG/3 ML VIAL.NEB NEB SCH ×4 (03:30→15:30)
--- NOTE | 2017-03-20 06:05 | NUR ---
RN NOTES PATIENT IN BED ASLEEP. RESPIRATIONS EVEN. DUE MEDS GIVEN. SAFETY PRECAUTIONS AND COMFORT MEASURES IN PLACE. WILL GIVE REPORT TO DAY SHIFT FOR CONTINUITY OF CARE.
[2017-03-20] MEDS: BLOOD SUGAR DIAGNOSTIC 1 EACH STRIP IN SCH ×3 (06:36→17:22)
[2017-03-20] MEDS: TRAMADOL HCL 50 MG TABLET PO PRN ×2 (06:39→16:01)
[2017-03-20] MEDS: PANTOPRAZOLE 40 MG TABLET.DR PO SCH (06:39)
--- NOTE | 2017-03-20 07:30 | NUR ---
RECEIVED PT. ALERT AND ORIENTED X3,VS STABLE,STILL REFUSES ACCU-CHECK.
[2017-03-20 08:00] VITALS: BP 149/89
[2017-03-20] MEDS: CEFTRIAXONE 1 G in IV D5W 50 ML IV SCH (09:15)
[2017-03-20] MEDS: FLUTICASONE/SALMETEROL DISKUS IH SCH ×2 (09:15→17:28)
[2017-03-20] MEDS: methylPREDNISolone SOD SUCC 125 MG/2ML VIAL IV SCH ×3 (09:15→17:28)
[2017-03-20] MEDS: LISINOPRIL (20MG) 20 MG TABLET PO SCH (09:16)
[2017-03-20] MEDS: ENOXAPARIN SODIUM 30 MG/0.3 ML DISP.SYRIN SQ SCH (12:00)
--- NOTE | 2017-03-20 12:00 | NUR ---
REFUSING ACCU-CHECK AND LOVENOX MED AT THIS TIME.
--- NOTE | 2017-03-20 14:13 | NUR ---
IN ASSUMPTION OF DISCHARGE OFFERED TO REMOVE RICH-TO SEE IF PT. CAN VOID-PT. REFUSING.STATES SHE WILL GO AND REFUSES TO HAVE REMOVED TILL MD ARRIVES.
[2017-03-20 16:00] VITALS: BP 154/100
[2017-03-20] MEDS ORDERED: DEXA4TAB2 PO (16:51)
[2017-03-20] MEDS ORDERED: LISI-603 PO (16:51)
[2017-03-20] MEDS ORDERED: ALBU1.257 NEB (16:51)
[2017-03-20] MEDS ORDERED: TRAM50TA2 PO (16:51)
[2017-03-20] MEDS ORDERED: FLUT1DIS3 INH (16:51)
[2017-03-20] MEDS ORDERED: PANT40TA2 PO (16:51)
[2017-03-20] MEDS ORDERED: IPRA0.2S9 IH (16:51)
[2017-03-20] MEDS ORDERED: METF500T4 PO (16:51)
[2017-03-20] MEDS ORDERED: CEPH-569 PO (16:51)
--- NOTE | 2017-03-20 17:00 | NUR ---
ANGELA MARTINEZ IN TO SEE PT. DC ORDER GIVEN,PT. STILL REFUSING TO HAVE F/C REMOVED TILL RIGHT BEFORE SHE LEAVES.ANGELA TO ELECTRONICALLY SEND MED LIST AND PRESCRIPTIONS TO PT,Jaime ANDERSON.
--- NOTE | 2017-03-20 18:00 | NUR ---
RN CALLING PHARM. NO ANSWER.MED LIST WITH COVER SHEET SENT WITH Jaime MCDANIEL ALEIDA #.PT. MADE AWARE.HEP LOCK OUT.
--- NOTE | 2017-03-20 18:15 | NUR ---
RICH REMOVED.INSTRUCTED TO RETURN TO ER IF NO VOID REFUSED TO HAVE REMOVED EARLIER.TAKEN TO LOBBY FOR TAXI NECK CUTTER -TO BE TRANSPORTED HOME.GRAND DTR. STAYING WITH PT.ALL PAPERS SIGNED AND AWARE TO FOLLOW UP WITH .BELONGINGS SENT WITH PT.
== END 2017-03-20 18:30 | disposition home or self-care (01) | DRG 140 ==
LOC: ER 07:34 → MED 09:19
PROVIDERS: ADMIT Nurse Practitioner Acute Care; ATTEND Nurse Practitioner Acute Care
DX: J44.1 Chronic obstructive pulmonary disease with (acute) exacerbation (principal); N17.0 Acute kidney failure with tubular necrosis; E43 Unspecified severe protein-calorie malnutrition; J20.9 Acute bronchitis, unspecified; J44.0 Chronic obstructive pulmonary disease with (acute) lower respiratory infection; Z68.1 Body mass index [BMI] 19.9 or less, adult; K21.9 Gastro-esophageal reflux disease without esophagitis; I10 Essential (primary) hypertension; I25.10 Atherosclerotic heart disease of native coronary artery without angina pectoris; J45.909 Unspecified asthma, uncomplicated; E11.9 Type 2 diabetes mellitus without complications; Z90.49 Acquired absence of other specified parts of digestive tract; Z87.891 Personal history of nicotine dependence; M26.609 Unspecified temporomandibular joint disorder, unspecified side
CPT/HCPCS: 36415; 71010-TC; 80048-TC; 80076-TC; 82962-TC; 83880; 84484-TC; 85025-TC; 87040-TC; 87081-TC; 94799-TC; A4606; J0456; J0696; J1650; J1815; J2270; J2930; J3475; J7030; J7060; Z7610

== ENCOUNTER 2017-04-23 08:28 | Emergency (ER) | payer MEDICARE, BC ==
[~2017-04-23] VITALS: Ht 165.1 cm; Wt 71.2 kg
[~2017-04-23 08:28] MED LIST changes: +ALBU1.257 NEB; +CEPH-569 PO; -CLON0.1T PO; +DEXA4TAB2 PO; +FLUT1DIS3 INH; +IPRA0.2S9 IH; +LISI-603 PO; +PANT40TA2 PO; +TRAM50TA2 PO
[2017-04-23] MEDS ORDERED: DEXAMETHASONE SOD PHOSPHATE 10 MG/ML VIAL IV ONE (08:30)
[2017-04-23] MEDS ORDERED: IPRATROPIUM NEB FS 0.5 MG/2.5 ML AMPUL.NEB NEB ONE (08:30)
[2017-04-23] MEDS ORDERED: ALBUTEROL FS 2.5 MG/3 ML VIAL.NEB CONTNEB ONE (08:30)
[2017-04-23] MEDS ORDERED: DEXAMETHASONE SOD PHOSPHATE 10 MG/ML VIAL ONE (08:36)
[2017-04-23] MEDS ORDERED: NITROGLYCERIN 0.4 MG/TAB BOTTLE ONE (08:36)
[2017-04-23 08:37] VITALS: BP 206/126
[2017-04-23] MEDS ORDERED: IPRATROPIUM NEB FS 0.5 MG/2.5 ML AMPUL.NEB ONE (08:40)
[2017-04-23] MEDS ORDERED: ALBUTEROL FS 2.5 MG/3 ML VIAL.NEB ONE ×2 (08:40→11:12)
--- NOTE | 2017-04-23 08:40 | NUR ---
BREATH SOUNDS DIMINISHED BILATERAL. PT. PLACED ON BIPAP DUE TO INCREASED WOB. BIPAP SETTINGS BELLOW PER MD ORDER: IPAP 15 EPAP 5 RATE 8 FIO2 40% Addendum: 04/23/17 at 0859 by ESTER MURPHY RT Amended: Links added.
--- NOTE | 2017-04-23 08:41 | NUR ---
PT BIB RA D/T SOB. PATIENT ON OXYGEN WITH NEBULIZER. VITALS TAKEN, MD AT BEDSIDE. PATIENT REMAINS A/O X 3, SAFETY AND COMFORT MEASURES IN PLACE. AWAITING MD ORDERS.
--- NOTE | 2017-04-23 08:44 | NUR ---
PATIENT GIVEN NITRO SL AND DECADRON IV PER MD ORDERS. WILL CONTINUE TO MONITOR.
--- NOTE | 2017-04-23 08:45 | NUR ---
PATIENT STARTED ON BIPAP
[2017-04-23 08:58] LABS: BASOPHILS # (AUTO) 0.1 /CMM (0.0-0.2); BASOPHILS % (AUTO) 1.4 % (0.0-2.0); EOSINOPHILS # (AUTO) 0.3 /CMM (0.0-0.7); HEMATOCRIT 40 % (33-45); HEMOGLOBIN 13.2 g/dL (11.5-14.8); LYMPHOCYTES # (AUTO) 4.6 /CMM (0.8-4.8); LYMPHOCYTES % (AUTO) 52.2 % (20.0-44.0); MEAN CORPUSCULAR HEMOGLOBIN 32 PG (26.0-33.0); MEAN CORPUSCULAR HGB CONC 33 g/dl (31.0-36.0); MEAN CORPUSCULAR VOLUME 97 fL (82-100); MONOCYTES # (AUTO) 0.7 /CMM (0.1-1.30); MONOCYTES % (AUTO) 8.6 % (2.0-12.0); NEUTROPHILS % (AUTO) 33.8 % (43.0-81.0); PLATELET COUNT (AUTO) 305 /CMM (150-450); RDW COEFFICIENT OF VARIATION 16.2 (11.5-15.0); RED BLOOD CELL COUNT(AUTO) 4.15 MIL/uL (4.0-5.2); WHITE BLOOD COUNT (AUTO) 8.7 K/uL (4.3-11.0)
[2017-04-23] MEDS ORDERED: NITROGLYCERIN 0.4 MG/TAB BOTTLE SL ONE (09:00)
[2017-04-23] MEDS ORDERED: PANT40TA4 PO (09:07)
[2017-04-23] MEDS ORDERED: METF500T4 PO (09:07)
[2017-04-23] MEDS ORDERED: FLUT1DIS3 IH (09:07)
[2017-04-23] MEDS ORDERED: TRAM50TA2 PO (09:07)
[2017-04-23] MEDS ORDERED: IPRA3AMP IH (09:07)
[2017-04-23] MEDS ORDERED: LISI-603 PO (09:07)
[2017-04-23 09:17] LABS: CALCIUM, SERUM 8.7 mg/dL (8.5-10.1); CARBON DIOXIDE 29 mmol/L (21-32); CHLORIDE 109 mmol/L (98-107); GLUCOSE 136 mg/dL (74-106); SODIUM SERUM 145 mmol/L (136-145); UREA NITROGEN, BLOOD 15 mg/dL (7-18)
[2017-04-23 09:25] LABS: TROPONIN I < 0.017 ng/mL (0.00-0.056)
[2017-04-23 09:29] LABS: B-TYPE NATRIURETIC PEPTIDE 94 PG/ML (0-125)
[2017-04-23 09:52] LABS: ABG BASE EXCESS -1.1 mmol/L; ABG OXYGEN SATURATION 99.2 % (92.0-98.5); ABG PCO2 42.7 mmHg (35.0-45.0); ABG PH 7.371 (7.350-7.450); ABG PO2 316.9 mmHg (75.0-100.0); MetHb 0.6 % (0.0-1.5); O2Hb 98.6 % (94.0-97.0); SITE, ABG Right Brachial; VENT MODE, BG IPAP 15/ EPAP 5 + 4O2 HHN
--- NOTE | 2017-04-23 09:56 | NUR ---
ABG'S REPORTED TO MD, TRIAL OFF BIPAP PER MD.
[2017-04-23] MEDS ORDERED: ALBUTEROL FS 2.5 MG/3 ML VIAL.NEB NEB ONE (11:00)
--- NOTE | 2017-04-23 11:09 | NUR ---
RESPIRATORY NOTIFIED OF ORDERS
--- NOTE | 2017-04-23 11:09 | NUR ---
PLACED ON NASAL CANNULA @ 2 LPM O2 FLOW SPO2 99%. BIPAP ON STD BY @ BEDSIDE BREATH SOUNDS WHEEZING BILATERAL. Addendum: 04/23/17 at 1109 by ESTER MURPHY RT Amended: Links added.
[2017-04-23] MEDS ORDERED: IBUPROFEN 600 MG TABLET PO ONE ×2 (11:24→11:30)
[2017-04-23] MEDS ORDERED: TRAMADOL HCL 50 MG TABLET ONE (11:24)
[2017-04-23] MEDS ORDERED: TRAMADOL HCL 50 MG TABLET PO ONE (11:30)
--- NOTE | 2017-04-23 12:40 | NUR ---
PT. VERBALIZED UNDERSTANDING OF AFTERCARE INSTRUCTIONS.Patient discharged to home in stable condition. Written and verbal after care instructions given. Patient verbalizes understanding of instruction.
--- NOTE | 2017-04-23 12:40 | NUR ---
IV removed. Catheter intact and site benign. Pressure and 4x4 applied to site. No bleeding noted.
[2017-04-23 12:41] VITALS: BP 138/99
== END 2017-04-23 12:41 | disposition home or self-care (01) ==
LOC: ER 08:29
DX: J44.1 Chronic obstructive pulmonary disease with (acute) exacerbation (principal); E11.9 Type 2 diabetes mellitus without complications; I10 Essential (primary) hypertension; M26.609 Unspecified temporomandibular joint disorder, unspecified side; R01.1 Cardiac murmur, unspecified; Z88.5 Allergy status to narcotic agent; Z90.49 Acquired absence of other specified parts of digestive tract; Z88.1 Allergy status to other antibiotic agents; Z88.8 Allergy status to other drugs, medicaments and biological substances
CPT/HCPCS: 36415; 36600 ×2; 71010; 80048; 82803; 83880; 84484; 85025; 93005; 94640; 94644; 94660; 96374; 99291; A4606; J1100; Z7610

== ENCOUNTER 2017-04-30 20:56 | Inpatient (IN) | payer BC, MEDICARE ==
[~2017-04-30] VITALS: Ht 165.1 cm; Wt 70.3 kg
[~2017-04-30 20:56] MED LIST changes: -ALBU1.257 NEB; -CEPH-569 PO; -DEXA4TAB2 PO; +FLUT1DIS3 IH; -FLUT1DIS3 INH; -IPRA0.2S9 IH; +IPRA3AMP IH; -PANT40TA2 PO; +PANT40TA4 PO
[2017-04-30] MEDS ORDERED: IPRATROPIUM NEB FS 0.5 MG/2.5 ML AMPUL.NEB NEB ONE (21:00)
[2017-04-30] MEDS ORDERED: methylPREDNISolone SOD SUCC 125 MG/2ML VIAL IV ONE (21:00)
[2017-04-30] MEDS ORDERED: ASPIRIN 325 MG TABLET PO ONE (21:00)
[2017-04-30] MEDS ORDERED: ALBUTEROL FS 2.5 MG/3 ML VIAL.NEB NEB ONE (21:00)
[2017-04-30] MEDS ORDERED: ALBUTEROL FS 2.5 MG/3 ML VIAL.NEB CONTNEB ONE (21:00)
[2017-04-30] MEDS ORDERED: ALBUTEROL FS 2.5 MG/3 ML VIAL.NEB ONE (21:02)
[2017-04-30] MEDS ORDERED: methylPREDNISolone SOD SUCC 125 MG/2ML VIAL ONE (21:03)
[2017-04-30] MEDS ORDERED: IPRATROPIUM NEB FS 0.5 MG/2.5 ML AMPUL.NEB ONE (21:03)
[2017-04-30] MEDS ORDERED: ASPIRIN 325 MG TABLET ONE (21:03)
[2017-04-30 21:18] LABS: CALCIUM, SERUM 8.6 mg/dL (8.5-10.1); CREATININE 1.1 mg/dL (0.6-1.3); POTASSIUM 3.5 mmol/L (3.5-5.1)
[2017-04-30 21:25] LABS: TROPONIN I 0.02 ng/mL (0.00-0.056)
[2017-04-30 21:30] LABS: ALBUMIN 3.4 g/dL (3.4-5.0); BILIRUBIN,DIRECT 0.1 mg/dL (0.0-0.2); BILIRUBIN,TOTAL 0.3 mg/dL (0.2-1.0); TOTAL PROTEIN, SERUM 7.2 g/dL (6.4-8.2)
[2017-04-30] MEDS ORDERED: NITROGLYCERIN PACKET 1 GM PACKET TD ONE (21:30)
[2017-04-30 21:31] LABS: BASOPHILS # (AUTO) 0.4 /CMM (0.0-0.2); BASOPHILS % (AUTO) 4.7 % (0.0-2.0); EOSINOPHILS # (AUTO) 0.5 /CMM (0.0-0.7); EOSINOPHILS % (AUTO) 5.4 % (0.0-6.0); HEMATOCRIT 38 % (33-45); HEMOGLOBIN 12.5 g/dL (11.5-14.8); LYMPHOCYTES # (AUTO) 3.8 /CMM (0.8-4.8); LYMPHOCYTES % (AUTO) 44.6 % (20.0-44.0); MEAN CORPUSCULAR HEMOGLOBIN 32 PG (26.0-33.0); MEAN CORPUSCULAR HGB CONC 33 g/dl (31.0-36.0); MEAN CORPUSCULAR VOLUME 95 fL (82-100); MONOCYTES # (AUTO) 0.8 /CMM (0.1-1.30); MONOCYTES % (AUTO) 8.5 % (2.0-12.0); NEUTROPHILS # (AUTO) 3.3 /CMM (1.8-8.9); NEUTROPHILS % (AUTO) 36.8 % (43.0-81.0); PLATELET COUNT (AUTO) 312 /CMM (150-450); RDW COEFFICIENT OF VARIATION 14.9 (11.5-15.0); RED BLOOD CELL COUNT(AUTO) 3.96 MIL/uL (4.0-5.2); WHITE BLOOD COUNT (AUTO) 8.8 K/uL (4.3-11.0)
[2017-04-30] MEDS ORDERED: NITROGLYCERIN PACKET 1 GM PACKET ONE (21:33)
[2017-04-30 21:51] LABS: BAND % (MANUAL) 1 % (0.0-5.0); BASOPHILS % (MANUAL) 0 % (0.0-2.0); EOSINOPHILS % (MANUAL) 5 % (0-4); LYMPHOCYTES % (MANUAL) 47 % (16-48); MONOCYTES % (MANUAL) 5 % (0-11.0); NEUTROPHILS % (MANUAL) 42 (42-76)
[2017-04-30] MEDS ORDERED: ALBUTEROL FS 2.5 MG/0.5 ML VIAL.NEB NEB PRN (22:00)
[2017-04-30] MEDS ORDERED: DEXTROSE 50%-WATER 50 ML DISP.SYRIN IV PRN (22:00)
[2017-04-30] MEDS ORDERED: Z GUARD REMEDY 2 OZ OINT TP PRN (22:00)
[2017-04-30] MEDS ORDERED: ACETAMINOPHEN 325 MG TABLET PO PRN (22:00)
[2017-04-30] MEDS ORDERED: ZOLPIDEM TARTRATE 5 MG TABLET PO PRN (22:00)
[2017-04-30] MEDS ORDERED: HYDROCODONE/APAP 5/325MG 1 EACH TABLET PO PRN (22:00)
[2017-04-30] MEDS ORDERED: LORAZEPAM INJ 2 MG/ML VIAL IV PRN (22:00)
[2017-04-30] MEDS ORDERED: MAG HYDROX/AL HYDROX/SIMETH 30 ML UDC PO PRN (22:00)
[2017-04-30] MEDS ORDERED: MAGNESIUM HYDROXIDE 30 ML UDC PO PRN (22:00)
[2017-04-30 22:18] LABS: ABG BASE EXCESS 1.5 mmol/L; ABG OXYGEN SATURATION 98.9 % (92.0-98.5); ABG PH 7.414 (7.350-7.450); ABG PO2 225.1 mmHg (75.0-100.0); AaDO2 445.9 mmHg; COHb 0.3 % (0.5-1.5); MetHb 0.5 % (0.0-1.5); O2Hb 98.1 % (94.0-97.0); SITE, ABG Left Radial; VENT MODE, BG BREATHING TX
[2017-04-30 22:24] VITALS: BP 165/101
[2017-04-30 23:09] VITALS: BP 162/111
[2017-04-30 23:30] VITALS: BP 152/95
[2017-04-30] MEDS ORDERED: TRAMADOL HCL 50 MG TABLET ONE (23:35)
[2017-04-30] MEDS: BLOOD SUGAR DIAGNOSTIC 1 EACH STRIP VI SCH (23:38)
[2017-04-30] MEDS: TRAMADOL HCL 50 MG TABLET PO PRN (23:44)
[2017-04-30] MEDS: *INSULIN REGULAR(HUMULIN R)HUM 100 UNIT/ML VIAL SQ PRN (23:48)
[2017-05-01] VITALS (22 sets, daily range): BP systolic 144–187; BP diastolic 66–103
[2017-05-01] MEDS ORDERED: MORPHINE SULFATE INJ 2 MG/ML DISP.SYRIN ONE (00:49)
[2017-05-01] MEDS: MORPHINE SULFATE INJ 2 MG/ML DISP.SYRIN IV PRN ×2 (01:25→16:33)
[2017-05-01] MEDS ORDERED: NITROGLYCERIN PACKET 1 GM PACKET ONE (04:20)
[2017-05-01] MEDS ORDERED: ONDANSETRON HCL/PF 4 MG/2 ML VIAL ONE (04:20)
[2017-05-01] MEDS: ONDANSETRON HCL/PF 4 MG/2 ML VIAL IVP PRN ×3 (04:25→20:26)
[2017-05-01] MEDS ORDERED: NITROGLYCERIN PACKET 1 GM PACKET TOP SCH ×2 (05:00→08:30)
[2017-05-01] MEDS ORDERED: PANTOPRAZOLE 40 MG TABLET.DR PO SCH (07:30)
[2017-05-01] MEDS: PANTOPRAZOLE 40 MG TABLET.DR PO SCH (07:30)
[2017-05-01] MEDS: BLOOD SUGAR DIAGNOSTIC 1 EACH STRIP VI SCH ×4 (07:30→21:46)
[2017-05-01] MEDS ORDERED: FLUTICASONE/VILANTEROL 1 EACH BLST.W.DEV IH SCH (09:00)
[2017-05-01] MEDS: methylPREDNISolone SOD SUCC 125 MG/2ML VIAL IV SCH ×4 (09:16→21:38)
[2017-05-01] MEDS: LISINOPRIL (20MG) 20 MG TABLET PO SCH (09:16)
[2017-05-01] MEDS: TRAMADOL HCL 50 MG TABLET PO PRN ×2 (09:21→21:38)
[2017-05-01] MEDS: ASPIRIN 81 MG TAB.CHEW PO SCH (09:21)
[2017-05-01] MEDS: ALBUTEROL FS 2.5 MG/0.5 ML VIAL.NEB NEB SCH ×4 (11:34→22:34)
[2017-05-01] MEDS: IPRATROPIUM NEB FS 0.5 MG/2.5 ML AMPUL.NEB NEB SCH ×4 (11:34→22:34)
[2017-05-01] MEDS ORDERED: AZITHROMYCIN 250 MG TABLET PO ONE (12:00)
[2017-05-01] MEDS: NITROGLYCERIN 30 GM TUBE TOP SCH ×2 (12:36→21:39)
[2017-05-01] MEDS ORDERED: hydrALAZINE HCL IV 20 MG VIAL IV PRN (13:00)
[2017-05-01] MEDS: hydrALAZINE HCL 10 MG TABLET PO PRN (16:35)
[2017-05-01] MEDS: ATORVASTATIN 10 MG TABLET PO SCH (21:37)
[2017-05-01] MEDS: *INSULIN REGULAR(HUMULIN R)HUM 100 UNIT/ML VIAL SQ PRN (21:53)
[2017-05-02] VITALS (10 sets, daily range): BP systolic 146–188; BP diastolic 65–98
[2017-05-02] MEDS: hydrALAZINE HCL 10 MG TABLET PO PRN (00:32)
[2017-05-02] MEDS: ALBUTEROL FS 2.5 MG/0.5 ML VIAL.NEB NEB SCH ×6 (02:39→23:55)
[2017-05-02] MEDS: IPRATROPIUM NEB FS 0.5 MG/2.5 ML AMPUL.NEB NEB SCH ×6 (02:39→23:55)
[2017-05-02] MEDS: methylPREDNISolone SOD SUCC 125 MG/2ML VIAL IV SCH ×5 (04:52→21:43)
[2017-05-02] MEDS: NITROGLYCERIN 30 GM TUBE TOP SCH ×3 (05:02→21:44)
[2017-05-02] MEDS ORDERED: methylPREDNISolone SOD SUCC 125 MG/2ML VIAL IV ONE (05:30)
[2017-05-02] MEDS: BLOOD SUGAR DIAGNOSTIC 1 EACH STRIP VI SCH ×4 (06:54→21:46)
[2017-05-02] MEDS: INSULIN REGULAR, HUMAN 100 UNIT/ML 3 ML VIAL SQ PRN ×2 (06:56→12:24)
[2017-05-02] MEDS: ASPIRIN 81 MG TAB.CHEW PO SCH (08:56)
[2017-05-02] MEDS: PANTOPRAZOLE 40 MG TABLET.DR PO SCH (08:57)
[2017-05-02] MEDS: TRAMADOL HCL 50 MG TABLET PO PRN ×2 (08:57→17:13)
[2017-05-02] MEDS: LISINOPRIL (20MG) 20 MG TABLET PO SCH (08:58)
[2017-05-02] MEDS: AZITHROMYCIN 250 MG TABLET PO SCH (11:51)
[2017-05-02] MEDS: MORPHINE SULFATE INJ 2 MG/ML DISP.SYRIN IV PRN (11:51)
[2017-05-02] MEDS: AMLODIPINE BESYLATE 5 MG TABLET PO SCH (13:38)
[2017-05-02] MEDS: ATORVASTATIN 10 MG TABLET PO SCH (21:44)
[2017-05-03] VITALS: BP 144/63
[2017-05-03 04:00] VITALS: BP 145/80
[2017-05-03] MEDS: NITROGLYCERIN 30 GM TUBE TOP SCH ×2 (04:25→13:00)
[2017-05-03] MEDS: IPRATROPIUM NEB FS 0.5 MG/2.5 ML AMPUL.NEB NEB SCH ×4 (04:53→14:32)
[2017-05-03] MEDS: ALBUTEROL FS 2.5 MG/0.5 ML VIAL.NEB NEB SCH ×4 (04:53→14:32)
[2017-05-03] MEDS: TRAMADOL HCL 50 MG TABLET PO PRN (05:40)
[2017-05-03] MEDS: BLOOD SUGAR DIAGNOSTIC 1 EACH STRIP VI SCH ×3 (06:59→17:44)
[2017-05-03 08:00] VITALS: BP 131/80
[2017-05-03] MEDS: PANTOPRAZOLE 40 MG TABLET.DR PO SCH (09:16)
[2017-05-03] MEDS: AMLODIPINE BESYLATE 5 MG TABLET PO SCH (09:16)
[2017-05-03] MEDS: ASPIRIN 81 MG TAB.CHEW PO SCH (09:16)
[2017-05-03] MEDS: LISINOPRIL (20MG) 20 MG TABLET PO SCH (09:17)
[2017-05-03] MEDS: methylPREDNISolone SOD SUCC 125 MG/2ML VIAL IV SCH ×2 (10:54→14:13)
[2017-05-03 12:00] VITALS: BP_SYST 140; BP_SYST 156; BP_SYST 172; BP_DIAS 82; BP_DIAS 84; BP_DIAS 86
[2017-05-03] MEDS: AZITHROMYCIN 250 MG TABLET PO SCH (12:00)
[2017-05-03 16:00] VITALS: BP_SYST 156; BP_SYST 163; BP_DIAS 79; BP_DIAS 84
[2017-05-03] MEDS ORDERED: DEXA4TAB2 PO (17:36)
[2017-05-03] MEDS ORDERED: AMLODIPINE BESYLATE 5 MG TABLET PO ONE (18:00)
[2017-05-04] MEDS ORDERED: AMLODIPINE BESYLATE 5 MG TABLET PO SCH (09:00)
== END 2017-05-03 18:43 | disposition home or self-care (01) | DRG 140 ==
LOC: ER 20:58 → ICU 22:28 → TELE-TD 05-01 15:35 → TELE1 05-01 15:55
PROVIDERS: ADMIT Internal Medicine; ATTEND Internal Medicine
PROC: 5A09357 Assistance with Respiratory Ventilation, Less than 24 Consecutive Hours, Continuous Positive Airway Pressure (ICD-10-PCS; principal; 2017-04-30)
DX: J44.1 Chronic obstructive pulmonary disease with (acute) exacerbation (principal); J96.21 Acute and chronic respiratory failure with hypoxia; I10 Essential (primary) hypertension; R04.2 Hemoptysis; E11.9 Type 2 diabetes mellitus without complications; K21.9 Gastro-esophageal reflux disease without esophagitis; Z79.899 Other long term (current) drug therapy; Z87.891 Personal history of nicotine dependence; R07.9 Chest pain, unspecified; J40 Bronchitis, not specified as acute or chronic
CPT/HCPCS: 36415; 36600; 70210-TC; 71010-TC; 80048-TC; 80076-TC; 82962-TC; 83880; 84484-TC; 85025-TC; 87081-TC; 94799-TC; A4606; J1815; J2060; J2270; J2405; J2930; Z7610

== ENCOUNTER 2017-10-06 00:27 | Inpatient (IN) | payer MEDICARE, BC ==
[~2017-10-06] VITALS: Ht 162.6 cm; Wt 80.3 kg
[~2017-10-06 00:27] MED LIST changes: +DEXA4TAB2 PO
[2017-10-06] MEDS ORDERED: IPRATROPIUM NEB FS 0.5 MG/2.5 ML AMPUL.NEB NEB ONE (00:30)
[2017-10-06] MEDS ORDERED: ALBUTEROL FS 2.5 MG/3 ML VIAL.NEB ONE (00:32)
[2017-10-06] MEDS ORDERED: IPRATROPIUM NEB FS 0.5 MG/2.5 ML AMPUL.NEB ONE ×2 (00:32→05:35)
--- NOTE | 2017-10-06 00:35 | NUR ---
TO BED 5 A 66 YO FEMALE PATIENT BIBRA 86 FROM [facility], C/O SOB NO RELIEF WITH HOME BREATHING TX. UPON ARRIVAL, PATIENT IS AAOX4, PLACED ON CARDIAC AND VS MONITORING. RT PAGED. DR FLANNERY AT BEDSIDE TO EVALUATE PATIENT.
--- NOTE | 2017-10-06 00:40 | NUR ---
STARTED A SALINE LOCK ON THE RIGHT HAND G20, BLOOD DRAWN AND SENT TO LAB.
[2017-10-06] MEDS ORDERED: methylPREDNISolone SOD SUCC 125 MG/2ML VIAL ONE (00:47)
[2017-10-06 00:55] LABS: BASOPHILS % (AUTO) 0.5 % (0.0-2.0); EOSINOPHILS % (AUTO) 0.1 % (0.0-6.0); HEMATOCRIT 44 % (33-45); HEMOGLOBIN 14.1 g/dL (11.5-14.8); LYMPHOCYTES # (AUTO) 1.8 /CMM (0.8-4.8); LYMPHOCYTES % (AUTO) 23.1 % (20.0-44.0); MEAN CORPUSCULAR HEMOGLOBIN 30 PG (26.0-33.0); MEAN CORPUSCULAR HGB CONC 32 g/dl (31.0-36.0); MEAN CORPUSCULAR VOLUME 94 fL (82-100); MONOCYTES # (AUTO) 1.1 /CMM (0.1-1.30); MONOCYTES % (AUTO) 13.5 % (2.0-12.0); NEUTROPHILS # (AUTO) 4.9 /CMM (1.8-8.9); NEUTROPHILS % (AUTO) 62.8 % (43.0-81.0); PLATELET COUNT (AUTO) 325 /CMM (150-450); RDW COEFFICIENT OF VARIATION 15.4 (11.5-15.0); WHITE BLOOD COUNT (AUTO) 7.9 K/uL (4.3-11.0)
--- NOTE | 2017-10-06 00:58 | NUR ---
xr at bedside.
[2017-10-06] MEDS ORDERED: methylPREDNISolone SOD SUCC 125 MG/2ML VIAL IV ONE (01:00)
[2017-10-06 01:07] LABS: CALCIUM, SERUM 8.8 mg/dL (8.5-10.1)
[2017-10-06] MEDS ORDERED: NITROGLYCERIN 0.4 MG/TAB BOTTLE ONE (01:10)
[2017-10-06] MEDS ORDERED: ASPIRIN 325 MG TABLET ONE (01:10)
[2017-10-06 01:14] LABS: TROPONIN I 0.035 ng/mL (0.00-0.056)
[2017-10-06 01:22] LABS: ALBUMIN 3.7 g/dL (3.4-5.0); BILIRUBIN,TOTAL 0.1 mg/dL (0.2-1.0); TOTAL PROTEIN, SERUM 8.2 g/dL (6.4-8.2)
[2017-10-06] MEDS ORDERED: NITROGLYCERIN 0.4 MG/TAB BOTTLE SL ONE (01:30)
[2017-10-06] MEDS ORDERED: ASPIRIN 325 MG TABLET PO ONE (01:30)
[2017-10-06] MEDS ORDERED: ALBUTEROL FS 2.5 MG/3 ML VIAL.NEB CONTNEB ONE (01:30)
--- NOTE | 2017-10-06 01:35 | NUR ---
3 NITRO SL GIVEN, PATIENT REPORTS NO RELIEF FROM CHEST PAIN. DR FLANNERY NOTIFIED. ONGOING CLOSE MONITORING.
[2017-10-06] MEDS ORDERED: LEVALBUTEROL HCL NEB 1.25 MG/0.5 ML VIAL.NEB ONE (01:47)
[2017-10-06] MEDS ORDERED: ONDANSETRON HCL/PF 4 MG/2 ML VIAL IVP PRN (02:00)
[2017-10-06] MEDS ORDERED: METOPROLOL TARTRATE 25 MG TABLET PO SCH (02:00)
[2017-10-06] MEDS ORDERED: ACETAMINOPHEN 325 MG TABLET PO PRN (02:00)
[2017-10-06] MEDS ORDERED: INSULIN REGULAR, HUMAN 100 UNIT/ML 3 ML VIAL SQ PRN (02:00)
[2017-10-06] MEDS ORDERED: LEVALBUTEROL HCL NEB 1.25 MG/0.5 ML VIAL.NEB NEB PRN ×2 (02:00)
[2017-10-06] MEDS ORDERED: MAGNESIUM HYDROXIDE 30 ML UDC PO PRN (02:00)
[2017-10-06] MEDS ORDERED: DEXTROSE 50%-WATER 50 ML DISP.SYRIN IV PRN (02:00)
[2017-10-06] MEDS ORDERED: CLONIDINE HCL 0.1 MG TABLET PO PRN (02:00)
[2017-10-06] MEDS ORDERED: TRAMADOL HCL 50 MG TABLET PO PRN (02:00)
--- NOTE | 2017-10-06 02:53 | NUR ---
PT ASSIGNED 316-2
--- NOTE | 2017-10-06 03:13 | NUR ---
Report given to Mendy SHAH for admission and elvira.
--- NOTE | 2017-10-06 03:34 | NUR ---
Transferred patient to tele bed 316-2 via als protocol, no incident noted.
[2017-10-06 04:04] VITALS: BP 187/100
[2017-10-06] MEDS ORDERED: methylPREDNISolone SOD SUCC 40 MG/ML VIAL ONE (04:16)
[2017-10-06] MEDS ORDERED: ENOXAPARIN SODIUM 40 MG/0.4 ML DISP.SYRIN SQ ONE (04:17)
[2017-10-06] MEDS ORDERED: METOPROLOL TARTRATE 25 MG TABLET ONE (04:18)
[2017-10-06] MEDS: methylPREDNISolone SOD SUCC 40 MG/ML VIAL IV SCH ×3 (04:24→20:58)
[2017-10-06] MEDS: IPRATROPIUM NEB FS 0.5 MG/2.5 ML AMPUL.NEB NEB PRN ×3 (05:41→19:42)
[2017-10-06] MEDS: BLOOD SUGAR DIAGNOSTIC 1 EACH STRIP IN SCH ×4 (06:01→22:00)
[2017-10-06] MEDS ORDERED: AZITHROMYCIN 500 MG VIAL ONE (06:03)
--- NOTE | 2017-10-06 06:45 | NUR ---
RN NOTES Patient arrived in unit at 03:45. No acute respiratory distress noted, patient on oxygen inhalation at 2lpm via NC. Breathing treatment given. Patient refused Metoprolol, explained she needs it because HR is elevated but stated that she doesn't want to take medication that she is not familiar with, explained risks and benefits, verbalized understanding. Patient refused LOvenox also. Charge nurse gwendolyn spring, Dr Nunez made aware also. Dr Nunez seen and examined patient, Dr Nunez aware that patient has wheezing. Patient c/o pain of 8/10 but was not able Dilaudid, not available yet. Charge nurse made aware. Patient took Decadron tab from her home medication after not getting Dilaudid. Patient also took Lisinopril without order after refusing Metoprolol. Explained risks and benefits. Explained to patient that she cannot do that and surrender her home meds with us but strongly refused saying that she will not let anyone take her medications. Patient refused accucheck also at 0730, saying that when her fingers get poked, her hands shake. Offered three times but refused. Patient refused lab draw also. Endorsed to Franklin SHAH that patient has her home medications with her and she would not give it and patient take meds without order.
--- NOTE | 2017-10-06 07:46 | NUR ---
MS RN OPENING NOTES RECEIVED PATIENT IN NO APPARENT DISTRESS. PATIENT IS ALERT AND RESTING IN BED. BEDSIDE RAILS ARE UP X2. BED IS LOCKED AND LOWERED. WILL CONTINUE TO MONITOR. CALL LIGHT IS WITHIN REACH.
[2017-10-06 08:00] VITALS: BP 190/115
[2017-10-06] MEDS: hydrALAZINE HCL 50 MG TABLET PO SCH ×3 (08:30→16:44)
[2017-10-06] MEDS: PANTOPRAZOLE 40 MG TABLET.DR PO SCH (08:31)
[2017-10-06] MEDS: METFORMIN 500 MG TABLET PO SCH ×2 (08:31→16:44)
[2017-10-06] MEDS: DOCUSATE SODIUM 100 MG CAPSULE PO SCH ×2 (08:32→16:44)
[2017-10-06] MEDS: ENOXAPARIN SODIUM 40 MG/0.4 ML DISP.SYRIN SQ SCH (08:35)
[2017-10-06] MEDS: FLUTICASONE/VILANTEROL 1 EACH BLST.W.DEV IH SCH (09:00)
[2017-10-06] MEDS ORDERED: AZITHROMYCIN 500 MG in IV D5W 250 ML IV SCH (09:00)
[2017-10-06] MEDS ORDERED: FLUTICASONE/SALMETEROL DISKUS IH SCH (09:00)
[2017-10-06] MEDS ORDERED: LISINOPRIL (20MG) 20 MG TABLET PO SCH (09:00)
[2017-10-06] MEDS: MORPHINE SULFATE INJ 4 MG/ML DISP.SYRIN IV PRN ×2 (11:36→21:57)
[2017-10-06] MEDS: ALBUTEROL HALF STRENGTH 1.25 MG/3 ML VIAL.NEB NEB PRN ×2 (12:26→19:43)
[2017-10-06 16:00] VITALS: BP 162/96
--- NOTE | 2017-10-06 16:48 | NUR ---
MS RN NOTES PATIENT REFUSED APRESOLINE, COLACE, AND ACCU CHECK. INFORMED PATIENT ABOUT THE IMPORTANCE OF BLOOD PRESSURE AND BLOOD SUGAR CONTROL.
--- NOTE | 2017-10-06 18:57 | NUR ---
MS RN CLOSING NOTES PATIENT IS IN STABLE CONDITION. IN NO APPARENT DISTRESS. BEDSIDE RAILS ARE UP X2. CALL LIGHT IS WITHIN REACH. BED IS LOCKED AND LOWERED. WILL ENDORSE CARE TO NUTRITION SERVICES ASSISTANT NURSE FOR ZOLTAN.
[2017-10-06 20:00] VITALS: BP 182/112
--- NOTE | 2017-10-06 20:00 | NUR ---
MS BONG INITIAL NOTES SEEN PT IN BED AWAKE AND ALERT WATCHING TV AT THIS TIME , NO SOB NOTED AT THIS TIME. DENIES ANY PAIN OR ANY DISCOMFORT. KEPT HER WARM AND COMFORTABLE AT ALL TIMES. ENCOURAGE HER TO USED THE CALL LIGHT SYSTEM IF SHE NEEDS SOME HELP OR NEED THE NURSE. KEPT HER WARM AND COMFORTABLE AT ALL TIMES. WILL CONTINUE TO MONITOR. PLACE CALL LIGHT AT REACH.
[2017-10-06 22:00] VITALS: BP 180/100
--- NOTE | 2017-10-06 23:02 | NUR ---
OPHTHALMIC MEDICAL TECHNICIAN/NOTES CALLED DR RAYO REGARDING PT REFUSED TO TAKE CATAPRESS MEDICATION FOR HER BLOOD PRESSURE 180/100, SHE STATED SHE HAD UPSET STOMACH AND SHE ALSO TOLD ME THAT SHE TOLD TO THE AM NURSE THAT SHE ONLY WANTS LISINOPRIL BUT HIGHER DOSE INSTEAD. MORPHINE WAS GIVEN ONE HOUR AGO . NO SIGNS OF ANY ACUTE DISTRESS NOTED. WAITING FOR MD RESPONSE.
[2017-10-06] MEDS ORDERED: LISINOPRIL (20MG) 20 MG TABLET ONE (23:26)
[2017-10-06] MEDS: LISINOPRIL (20MG) 20 MG TABLET PO SCH (23:28)
[2017-10-06] MEDS: GUAIFENESIN/D-METHORPHAN HB 5 ML UDC PO PRN (23:30)
[2017-10-07 02:00] VITALS: BP 160/92
[2017-10-07] MEDS ORDERED: AZITHROMYCIN 500 MG in IV D5W 250 ML IV SCH (06:00)
[2017-10-07] MEDS: methylPREDNISolone SOD SUCC 40 MG/ML VIAL IV SCH ×2 (06:14→12:42)
[2017-10-07] MEDS: IPRATROPIUM NEB FS 0.5 MG/2.5 ML AMPUL.NEB NEB PRN (06:45)
[2017-10-07] MEDS: ALBUTEROL HALF STRENGTH 1.25 MG/3 ML VIAL.NEB NEB PRN (06:45)
--- NOTE | 2017-10-07 07:00 | NUR ---
MS CERAMIC SAW TENDER CLOSING NOTES PT RESTING AT THIS TIME WHILE WATCHING TV, GOT HER BREATHING TREATMENT TOO. ALL DUE MEDS GIVEN. STABLE TORSTEN THE NIGHT EXCEPT HER BLOOD PRESSURE BUT PT STATED SHE'S OK, SHE ALWAYS HAVE HIGH BP. I EXPLAINED TO HER THAT STILL NOT GOOD IF YOU HAVE ALWAYS HIGH BP, BUT SHE DOESN'T WANT ALSO TOO MUCH MEDICATION FOR HER BP BECAUSE SHE GOT UPSET STOMACH. KEPT HER WARM AND COMFORTABLE AT ALL TIME, NOT IN ANY ACUTE DISTRESS NOTED. ENDORSE TO AM NURSE HARTMAN FOR CONTINUITY OF CARE.
[2017-10-07] MEDS: BLOOD SUGAR DIAGNOSTIC 1 EACH STRIP IN SCH ×2 (07:30→12:00)
--- NOTE | 2017-10-07 07:37 | NUR ---
MS RN OPENING NOTES RECEIVED PATIENT IN STABLE CONDITION. IN NO APPARENT DISTRESS. PATIENT IS RESTING IN BED. BEDSIDE RAILS ARE UP X2. BED IS LOCKED AND LOWERED. CALL LIGHT IS WITHIN REACH. WILL CONTINUE TO MONITOR.
[2017-10-07 08:00] VITALS: BP 170/108
[2017-10-07] MEDS: hydrALAZINE HCL 50 MG TABLET PO SCH ×2 (08:10→12:42)
[2017-10-07] MEDS: DOCUSATE SODIUM 100 MG CAPSULE PO SCH (08:10)
[2017-10-07] MEDS: ENOXAPARIN SODIUM 40 MG/0.4 ML DISP.SYRIN SQ SCH (08:10)
--- NOTE | 2017-10-07 08:12 | NUR ---
PATIENT REFUSED LOVENOX, APRESOLINE AND COLACE. EDUCATED PATIENT ON THE IMPORTANCE OF BLOOD SUGAR CONTROL, AND BLOOD PRESSURE CONTROL. PATIENT REFUSES DUE TO EXPERIENCING SIDE EFFECTS. PATIENT IS NOT CONSTIPATED
[2017-10-07 08:41] VITALS: BP 170/108
[2017-10-07] MEDS: LISINOPRIL (20MG) 20 MG TABLET PO SCH (08:41)
[2017-10-07] MEDS: PANTOPRAZOLE 40 MG TABLET.DR PO SCH (08:41)
[2017-10-07] MEDS: GUAIFENESIN/D-METHORPHAN HB 5 ML UDC PO PRN ×2 (08:42→14:44)
[2017-10-07] MEDS: METFORMIN 500 MG TABLET PO SCH (08:42)
[2017-10-07] MEDS: FLUTICASONE/VILANTEROL 1 EACH BLST.W.DEV IH SCH (08:44)
[2017-10-07] MEDS: MORPHINE SULFATE INJ 4 MG/ML DISP.SYRIN IV PRN (11:08)
[2017-10-07] MEDS ORDERED: PRED20TA PO (13:30)
[2017-10-07] MEDS ORDERED: PRED10TA23 PO (13:30)
[2017-10-07] MEDS ORDERED: CEPH-570 PO (13:30)
[2017-10-07] MEDS ORDERED: PRED5TAB48 PO (13:30)
--- NOTE | 2017-10-07 14:16 | NUR ---
Social service consult requested by case coordinator Edwardo to assess home situation. Pt. is a 66 year old female who was admitted to [facility] for COPD and chest pain. ALFONSO met with pt. bedside along with case management Edwardo. Pt. is alert and oriented x3. Pt. was cooperative and friendly with social security specialist during the assessment. Pt. had her sunglasses on stating the room is too bright for her.SW is familiar with pt. from a previous admission. Pt. was cooperative with SW during the assessment. Pt. states she lives with her daughter Jeannine at [address] in [place]. [place]. Per pt, she receives [employer] and her daughter Jeannine is her caregiver. Pt. states she has good support from Jeannine. Pt. receives approximately $960.84 per month in social security income. Pt. informed SW that after she pays her rent she is only left with approximately $18 for food. However, pt. states her daughter assists her with food as well. ALFONSO offered pt. food bank resources, however pt. declined stating, " I don't want canned foods". Pt. is worried that the landlord is going to raise her rent in November and she might not be able to afford it. ALFONSO gave pt. contact information to [employer] [email or web address] along with the toll-free hotline number . ALFONSO also offered pt. resources to assisted livings, however pt. declined. No other social service needs are requested at this time. ALFONSO will reassess if needed.
--- NOTE | 2017-10-07 15:04 | NUR ---
PATIENT WAS DISCHARGED IN STABLE CONDITION. IN NO APPARENT DISTRESS. PATIENT'S PERIPHERAL IV LINE WAS REMOVED. IDENTIFICATION TAGS WERE REMOVED. PATIENT WAS EDUCATED ON HER NEW PRESCRIPTION MEDICATIONS (PREDNISONE AND KEFLEX). NEW PRESCRIPTION WAS CALLED IN TO PATIENTS NEAREST PHARMACY ([facility]). EDUCATION WAS PROVIDED ON SHORTNESS OF BREATH AND EXITCARE EDUCATION. PATIENT WAS ESCORTED TO THE MAIN LOBBY TO AWAIT TAXI.
== END 2017-10-07 15:00 | disposition home or self-care (01) | DRG 140 ==
LOC: ER 00:28 → TELE 02:54 → MED 08:30
PROVIDERS: ADMIT Internal Medicine; ATTEND Internal Medicine
DX: J44.1 Chronic obstructive pulmonary disease with (acute) exacerbation (principal); J96.01 Acute respiratory failure with hypoxia; I10 Essential (primary) hypertension; E11.9 Type 2 diabetes mellitus without complications; E66.9 Obesity, unspecified; F41.9 Anxiety disorder, unspecified; I25.10 Atherosclerotic heart disease of native coronary artery without angina pectoris; K21.9 Gastro-esophageal reflux disease without esophagitis; Z90.49 Acquired absence of other specified parts of digestive tract; Z79.899 Other long term (current) drug therapy; Z79.84 Long term (current) use of oral hypoglycemic drugs; I35.1 Nonrheumatic aortic (valve) insufficiency; I34.0 Nonrheumatic mitral (valve) insufficiency; M26.609 Unspecified temporomandibular joint disorder, unspecified side; Z68.30 Body mass index [BMI] 30.0-30.9, adult
CPT/HCPCS: 36415; 71010-TC; 80048-TC; 80076-TC; 82962-TC; 83605-TC; 83880; 84484-TC; 85025-TC; 87040-TC; 93307-TC; A4606; J0456; J1650; J1815; J2270; J2920; J2930; J7050; J7060; Z7610

== ENCOUNTER 2018-04-14 18:46 | Inpatient (IN) | payer MEDICAID, MEDICARE ==
[~2018-04-14] VITALS: Ht 162.6 cm; Wt 80.3 kg
[~2018-04-14 18:46] MED LIST changes: +CEPH-570 PO; -DEXA4TAB2 PO; -IPRA3AMP IH; +IPRA3AMP23 IH; +METF-440 PO; -METF500T4 PO; +PRED10TA23 PO; +PRED20TA PO; +PRED5TAB48 PO
[2018-04-14] MEDS ORDERED: Magnesium 1GM/D5W 100ML PREMIX 200 ML IV ONE ×2 (18:53→19:00)
[2018-04-14] MEDS ORDERED: IPRATROPIUM NEB FS 0.5 MG/2.5 ML AMPUL.NEB NEB ONE (19:00)
[2018-04-14] MEDS ORDERED: methylPREDNISolone SOD SUCC 125 MG/2ML VIAL ONE (19:00)
[2018-04-14] MEDS ORDERED: methylPREDNISolone SOD SUCC 125 MG/2ML VIAL IV ONE (19:00)
[2018-04-14] MEDS ORDERED: ALBUTEROL FS 2.5 MG/3 ML VIAL.NEB NEB ONE (19:00)
--- NOTE | 2018-04-14 19:00 | NUR ---
PT REC'D FROM EMT ON CPAP MASK 15LPM. PT LETHARGIC BUT ABLE TO FOLLOW COMMANDS, PT ALSO SHOWED SIGNS OF RESPIRATORY DISTRESS. PT PLACED ON BIPAP ON SETTINGS CHARTED PER DR LOFTON'S REQUEST. BIPAP PLUGGED INTO RED OUTLET. ALARMS ARE SET AND AUDIBLE. AMBU BAG BEDSIDE. WILL CONTINUE TO MONITOR. Addendum: 04/14/18 at 2053 by MERCEDES VAZQUEZ RT Amended: Links added.
--- NOTE | 2018-04-14 19:04 | NUR ---
[id number] FROM HOME DT SEVERE SOB, HYPOXIA. PATIENT RECEIVED ON BIAPP. APPEARS IN DISTRESS. PATIENT REMAINS AWAKE. SKIN IS WARM TO TOUCH AND NON DIAPHORETIC. PATIENT IS AFEBRILE. CONNECTED PT TO TELE MONITOR. MD AT BS. RT AT BS.
[2018-04-14 19:13] LABS: CALCIUM, SERUM 9.5 mg/dL (8.5-10.1); CARBON DIOXIDE 28 mmol/L (21-32); CHLORIDE 104 mmol/L (98-107); GLUCOSE 214 mg/dL (74-106); POTASSIUM 3.8 mmol/L (3.5-5.1); SODIUM SERUM 141 mmol/L (136-145); UREA NITROGEN, BLOOD 19 mg/dL (7-18)
[2018-04-14] MEDS ORDERED: IPRATROPIUM NEB FS 0.5 MG/2.5 ML AMPUL.NEB ONE (19:16)
[2018-04-14] MEDS ORDERED: ALBUTEROL FS 2.5 MG/3 ML VIAL.NEB ONE (19:16)
[2018-04-14 19:21] LABS: TROPONIN I < 0.017 ng/mL (0.00-0.056)
[2018-04-14 19:26] LABS: ALANINE AMINOTRANSFERASE 38 U/L (12-78); ALBUMIN 3.7 g/dL (3.4-5.0); ALKALINE PHOSPHATASE 83 U/L (46-116); ASPARTATE AMINOTRANSFERASE 34 U/L (15-37); B-TYPE NATRIURETIC PEPTIDE 166 PG/ML (0-125); BILIRUBIN,DIRECT 0.2 mg/dL (0.0-0.2); BILIRUBIN,TOTAL 0.6 mg/dL (0.2-1.0); TOTAL PROTEIN, SERUM 8.1 g/dL (6.4-8.2)
[2018-04-14] MEDS ORDERED: DILTIAZEM HCL 25 MG IV ONE (19:27)
[2018-04-14] MEDS ORDERED: DILTIAZEM HCL 50 MG IV IV ONE (19:30)
--- NOTE | 2018-04-14 19:30 | NUR ---
PT NOTED ANXIOUS, IN DISTRESS, C/O CHEST PAIN, NOTED DIAPHORETIC, TACHY AT 140S- MD AWARE. MD AT BS. MEDICATED ORDERED.
--- NOTE | 2018-04-14 19:35 | NUR ---
LFA IV D/C'D. PT'S IV FELL OUT WHILE SHE WAS MOVING HER ARM. SITE CLEANED AND 4X4'S APPLIED AND COVERED WITH TAPE. PT IS ON BIPAP WITH THE FOLLOWING SETTIN/5, RATE 16, FIO2 35%.
--- NOTE | 2018-04-14 19:35 | NUR ---
RT AT BS FOR BREATHING TX.
--- NOTE | 2018-04-14 19:44 | NUR ---
ENDORSED TO JC FOR ZOLTAN.
[2018-04-14 19:51] LABS: BASOPHILS # (AUTO) 0.2 /CMM (0.0-0.2); BASOPHILS % (AUTO) 1.2 % (0.0-2.0); EOSINOPHILS % (AUTO) 0.4 % (0.0-6.0); HEMATOCRIT 46 % (33-45); HEMOGLOBIN 14.8 g/dL (11.5-14.8); LYMPHOCYTES # (AUTO) 7.7 /CMM (0.8-4.8); LYMPHOCYTES % (AUTO) 48.2 % (20.0-44.0); MEAN CORPUSCULAR HGB CONC 32 g/dl (31.0-36.0); MEAN CORPUSCULAR VOLUME 98 fL (82-100); MONOCYTES # (AUTO) 0.6 /CMM (0.1-1.30); MONOCYTES % (AUTO) 3.8 % (2.0-12.0); NEUTROPHILS # (AUTO) 7.5 /CMM (1.8-8.9); NEUTROPHILS % (AUTO) 46.4 % (43.0-81.0); PLATELET COUNT (AUTO) 349 /CMM (150-450); RDW COEFFICIENT OF VARIATION 15.1 (11.5-15.0); RED BLOOD CELL COUNT(AUTO) 4.72 MIL/uL (4.0-5.2); WHITE BLOOD COUNT (AUTO) 16.1 K/uL (4.3-11.0)
[2018-04-14] MEDS ORDERED: LORAZEPAM INJ 2 MG/ML VIAL ONE (19:53)
[2018-04-14] MEDS ORDERED: LORAZEPAM INJ 2 MG/ML VIAL IV ONE (20:00)
[2018-04-14] MEDS ORDERED: IV NS 0.9% 1,000 ML BAG IV ONE (20:00)
--- NOTE | 2018-04-14 20:00 | NUR ---
PT REC'ING ATIVAN IVP BY ALYSSA SERRANO. PT IS EXTREMELY ANXIOUS. BIPAP RATE BEING INCREASED TO 20/5.
--- NOTE | 2018-04-14 20:01 | NUR ---
Note yolette in EDM - 04/14/18 at 2002 by ROSSANA PT REC'ING ATIVAN IVP BY ALYSSA SERRANO. PT IS EXTREMELY ANXIOUS. BIPAP RATE BEING INCREASED TO 15/5.
--- NOTE | 2018-04-14 20:15 | NUR ---
BIPAP SETTING CHANGED BY RT TO 22/5, RT 16, FIO2 30%.
[2018-04-14] MEDS ORDERED: diphenhydrAMINE HCL 50 MG/ML VIAL ONE (20:17)
--- NOTE | 2018-04-14 20:20 | NUR ---
ABG TAKEN FROM PT. RESULTS GIVEN TO DR LOFTON. INCREASED IPAP TO [address] LOFTON REQUEST. Addendum: 04/14/18 at 2050 by MERCEDES VAZQUEZ RT Amended: Links added.
[2018-04-14] MEDS ORDERED: diphenhydrAMINE HCL 50 MG/ML VIAL IV ONE (20:30)
--- NOTE | 2018-04-14 20:33 | NUR ---
PT IS SCRATCHING HER LEGS. REDNESS/RASH NOTED. DR. LOFTON NOTIFIED.
[2018-04-14 20:38] LABS: ABG BASE EXCESS -4.6 mmol/L; ABG OXYGEN SATURATION 98.2 % (92.0-98.5); ABG PCO2 66.1 mmHg (35.0-45.0); ABG PH 7.195 (7.350-7.450); ABG PO2 151.3 mmHg (75.0-100.0); AaDO2 21.4 mmHg; COHb 0.4 % (0.5-1.5); MetHb 0.5 % (0.0-1.5); O2Hb 97.3 % (94.0-97.0); SITE, ABG Right Radial
--- NOTE | 2018-04-14 20:46 | NUR ---
BELLE GOYAL, SAVANA AGUILAR NP HAND THERAPIST
--- NOTE | 2018-04-14 20:55 | NUR ---
RN NOTES REPORT RECEIVED FROM CENTER DIRECTOR LEAD TEACHERALYSSA GREENE
--- NOTE | 2018-04-14 20:58 | NUR ---
REPORT GIVEN TO AVNI COAL EQUIPMENT OPERATOR NURSE.
--- NOTE | 2018-04-14 20:59 | NUR ---
PT REFUSED CONTRAST FOR CTA. CTA CANCELLED PER DR. LOFTON.
--- NOTE | 2018-04-14 21:20 | NUR ---
PT IS ON THE BEDPAN.
--- NOTE | 2018-04-14 21:33 | NUR ---
PT HAD A LARGE BM. PT WAS CLEANED AND NEW LINENS APPLIED. PT REFUSED A HOSPITAL GOWN AGAIN. PT REFUSED HOSPITAL SOCKS.
--- NOTE | 2018-04-14 21:33 | NUR ---
PT DID NOT HAVE HER OWN SOCKS WITH HER AND REC'D GRIPPER SOCKS. PT ALSO REC'D 2 WARM BLANKETS. PT IS ON THE MONITOR AND CONTINUOUS PULSE OX.
--- NOTE | 2018-04-14 21:40 | NUR ---
CALLED RT RE: TRANSPORTING PT TO ICU.
[2018-04-14] MEDS ORDERED: FAMOTIDINE/PF INJ 20 MG/2 ML VIAL IV ONE (21:54)
--- NOTE | 2018-04-14 21:54 | NUR ---
PT REC'D 20MG PEPCID IVP BY ALYSSA MENDIOLA PRIOR TO PT GOING TO ICU. PT IS SCRATCHING. RASH AND REDNESS NOTED ON BUE AND BLE.
--- NOTE | 2018-04-14 21:55 | NUR ---
PT TRANSPORTED TO ICU PER PROTOCOL. RT, EMT AND MYSELF WITH PT. PT IS ON 3L O2 VIA NC.
[2018-04-14 22:00] VITALS: BP 180/110
[2018-04-14] MEDS ORDERED: ONDANSETRON HCL/PF 4 MG/2 ML VIAL IVP PRN (22:00)
[2018-04-14] MEDS ORDERED: IPRATROPIUM NEB FS 0.5 MG/2.5 ML AMPUL.NEB NEB PRN (22:00)
[2018-04-14] MEDS ORDERED: FAMOTIDINE/PF INJ 20 MG/2 ML VIAL IV SCH (22:00)
[2018-04-14] MEDS ORDERED: ACETAMINOPHEN 325 MG TABLET PO PRN (22:00)
[2018-04-14] MEDS ORDERED: ALBUTEROL FS 2.5 MG/3 ML VIAL.NEB NEB PRN (22:00)
[2018-04-14] MEDS ORDERED: LORAZEPAM INJ 2 MG/ML VIAL IV PRN (22:00)
[2018-04-14] MEDS ORDERED: DEXTROSE 50%-WATER 50 ML DISP.SYRIN IV PRN (22:00)
[2018-04-14] MEDS ORDERED: diphenhydrAMINE HCL 50 MG/ML VIAL IV PRN (22:00)
--- NOTE | 2018-04-14 22:00 | NUR ---
RN NOTES PATIENT ARRIVED VIA GURNEY, WAS ABLE TO TRANSFER FROM [facility] TO BED INDEPENDENTLY. PT IS A/O X4, VERY ANXIOUS. PT IS ON BIPAP WITH SETTINGS 22/5, RATE 16, FIO2 30%, SATURATING WELL, NO S/S OF RESP DISTRESS, PATIENT INSISTS ON BEING ON NASAL CANNULA ONLY. CURRENTLY SINUS TACH ON THE MONITOR, HR 100-110'S. SKIN IS DRY AND INTACT, NOTED RASHES ON BUE AND BLE, MEDICATION HAS BEEN GIVEN IN ER. RIGHT AC 18G, FLUSHED AND PATENT, NO S/S OF INFILTRATION/INFECTION, DRESSING CDI. BED LOW AND LOCKED, SIDERAILS UP, CALL LIGHT WITHIN REACH. WILL MONITOR.
[2018-04-14 22:17] VITALS: BP 184/110
[2018-04-14] MEDS: BLOOD SUGAR DIAGNOSTIC 1 EACH STRIP IN SCH (22:25)
[2018-04-14] MEDS: INSULIN REGULAR, HUMAN 100 UNIT/ML 3 ML VIAL SQ PRN (22:27)
[2018-04-14] MEDS: ENOXAPARIN SODIUM 40 MG/0.4 ML DISP.SYRIN SQ SCH (22:30)
--- NOTE | 2018-04-14 22:30 | NUR ---
RN NOTES PT REFUSES TO BE ON A HOSPITAL GOWN. SHE REFUSES FOR HER BAGS TO BE CHECKED. SHE REFUSES FOR HER MEDICATIONS TO BE TAKEN AWAY AND GIVEN TO PHARMACY TO BE REVIEWED. VOCAL TEACHER AWARE
[2018-04-14 22:43] VITALS: BP 173/112
--- NOTE | 2018-04-14 22:50 | NUR ---
RN NOTES NOTIFIED ON-CALL SAVANA AGUILAR ABOUT PATIENT'S SBP'S > 160 AND HER COMPLAINTS OF BACK PAIN. PER SAVANA, HE WILL PUT IN ORDERS
[2018-04-14 23:00] VITALS: BP 177/111
--- NOTE | 2018-04-14 23:25 | NUR ---
RT PT AWAKE/ALERT REFUSING BIPAP AND FOLLOW UP ABG AT THIS TIME. RN IS AWARE,. PT WAS TOLD IMPORTANCE OF ABG BUT STILL DECIDED TO REFUSE. NO SOB OR DISTRESS NOTED AT THIS TIME. WILL CONTINUE TO MONITOR.
[2018-04-14 23:27] VITALS: BP 157/107
--- NOTE | 2018-04-14 23:30 | NUR ---
RN NOTES PATIENT TOOK OFF BIPAP AND REFUSES TO REMAIN ON BIPAP. PUT HER ON 3L (HER HOME O2) NASAL CANNULA. SHE REFUSED ABG WELL. MACHINE SET UP TECHNICIAN JOHN AND RT MELINDA ARE AWARE
[2018-04-14] MEDS: MORPHINE SULFATE INJ 4 MG/ML DISP.SYRIN IV PRN (23:31)
[2018-04-14] MEDS: hydrALAZINE HCL IV 20 MG VIAL IV PRN (23:31)
[2018-04-15] VITALS (36 sets, daily range): BP systolic 43–214; BP diastolic 16–142
[2018-04-15] MEDS: MORPHINE SULFATE INJ 4 MG/ML DISP.SYRIN IV PRN ×3 (03:54→15:08)
--- NOTE | 2018-04-15 04:30 | NUR ---
RN NOTES PATIENT REFUSED MORNING BLOOD DRAW. EXPLAINED THE IMPORTANCE OF MORNING LAB VALUES BUT PT REMAINS TO REFUSE. WILL ENDORSE TO DAY SHIFT
--- NOTE | 2018-04-15 06:10 | NUR ---
RN CLOSING NOTES PT REMAINS STABLE OF THE MOMENT, REMAINED ON 3L NASAL CANNULA WITH GOOD SATURATION THROUGHOUT THE NIGHT. ALL DUE MEDS GIVEN. WILL ENDORSE ZOLTAN TO AM RN
--- NOTE | 2018-04-15 08:00 | NUR ---
Received patient in the morning awake, and alert, oriented x 4. Patient on cardioscope SR without ectopy. On 02 3 L NC. Lungs with scattered rhonchi, expiratory wheezing - fiminished bilat. Patient eating breakfast this morning and consumes 85%. Uses bedside commode and has some stool, and voiding without difficulty. IV saline loc Right AC intact and flushes without resistance. German Lo RN
[2018-04-15] MEDS: BLOOD SUGAR DIAGNOSTIC 1 EACH STRIP IN SCH ×4 (08:55→21:32)
--- NOTE | 2018-04-15 09:00 | NUR ---
Blood sugar 222 and regular insulin 4 units given sc per sliding scale per do. German Lo RN
[2018-04-15] MEDS: ENOXAPARIN SODIUM 40 MG/0.4 ML DISP.SYRIN SQ SCH (09:03)
[2018-04-15] MEDS: PANTOPRAZOLE 40 MG VIAL IV SCH (09:04)
[2018-04-15] MEDS: methylPREDNISolone SOD SUCC 40 MG/ML VIAL IV SCH ×3 (09:05→16:30)
[2018-04-15] MEDS: LISINOPRIL (20MG) 20 MG TABLET PO SCH (09:11)
[2018-04-15] MEDS: INSULIN REGULAR, HUMAN 100 UNIT/ML 3 ML VIAL SQ PRN ×2 (09:16→12:51)
[2018-04-15] MEDS: CLONIDINE HCL 0.1 MG TABLET PO SCH ×4 (10:30→21:00)
--- NOTE | 2018-04-15 11:15 | NUR ---
Patient IV leaking when flushed, and I started #20 guage right forearm with good blood return. German Lo RN
[2018-04-15] MEDS: hydrALAZINE HCL IV 20 MG VIAL IV PRN ×2 (11:20→13:30)
[2018-04-15 11:24] LABS: ABG BASE EXCESS -2.1 mmol/L; ABG OXYGEN SATURATION 98.3 % (92.0-98.5); ABG PCO2 35.3 mmHg (35.0-45.0); ABG PH 7.411 (7.350-7.450); ABG PO2 148.2 mmHg (75.0-100.0); AaDO2 24.2 mmHg; COHb 0.3 % (0.5-1.5); MetHb 0.8 % (0.0-1.5); O2Hb 97.2 % (94.0-97.0); SITE, ABG Right Radial; VENT MODE, BG N/C
--- NOTE | 2018-04-15 12:00 | NUR ---
BS 147, and regular insulin given, see emar for result. Eating lunch. Pain level resolved to 4/10. German Lo RN
[2018-04-15] MEDS ORDERED: NITROGLYCERIN 30 GM TUBE TP PRN (14:30)
--- NOTE | 2018-04-15 14:33 | NUR ---
Charge Nurse, Caridad called for a consult due to 67 yr old pt inquiring about low income housing. The patient's past medical history includes hypertension, diabetes mellitus, and chronic obstructive pulmonary disease. Upon evaluation, patient is alert and oriented x4. Pt was in a fair and pleasant mood, patient stated, "I'm so glad you're here, I need help." Pt reports living with her daughter, who is her sprinkler fitter helper and seeking affordable housing for both. Pt does not want referrals to senior housing and or an assisted living, "because they won't take my daughter and she needs to come with me." Pt reports current living conditions are "horrible" (i.e. no carpet and roaches). Pt requested referrals to low income housing in the [place] and [place] areas. In addition, pt requested referrals to low income dentistry and "scooter" repairs. Pt reported needing a TJM specialist, "who doesn't charge me $1500, cause I can't afford that." Pt also reported needing assistance in repairing her mobility wheelchair, "because it doesn't work and I cant walk." provided pt with the following referrals: [place] [employer], , [facility] [employer] [facility] [employer] [facility], [facility] [place] and [employer] [place] (mobility and repair) [phone]. Pt was also provided with a [facility] application. Pt accepted referrals and reported being thankful.
[2018-04-15] MEDS: IPRATROPIUM NEB FS 0.5 MG/2.5 ML AMPUL.NEB NEB SCH ×2 (15:00→19:22)
[2018-04-15] MEDS: ALBUTEROL FS 2.5 MG/3 ML VIAL.NEB NEB SCH ×2 (15:00→19:22)
--- NOTE | 2018-04-15 15:08 | NUR ---
Patient co pain in the chest anterior, and lower back posterior, and medicated with morphine 4mg IVP per do. IV flush with NS 10 ml and sm amt leaked on pillow, so notified the charge nurse that patient needs PICC line for IV meds. German Lo RN
--- NOTE | 2018-04-15 15:09 | NUR ---
hhn deferred to 1900. last tx given at 1345.
[2018-04-15] MEDS ORDERED: MORPHINE SULFATE INJ 4 MG/ML DISP.SYRIN IV STA (16:02)
--- NOTE | 2018-04-15 16:04 | NUR ---
CIRCULATION REPRESENTATIVE PATIENT'S RIGHT WRIST IV NOTED TO BE INFILTRATED. RN REMOVED THE IV. RN CALLED AND INFORMED MD THAT PATIENT COMPLAINTS THAT LAST MORPHINE DOSE WAS NOT EFFECTIVELY GIVEN DUE TO INFILTRATED IV. MD ORDERED TO GIVE ONE TIME DOSE OF MORPHINE 4MG IV STAT. PATIENT MADE AWARE.
--- NOTE | 2018-04-15 16:40 | NUR ---
Patient co pain, on scale 1-10=8 anterior chest, and lower back area - on scale 1-10=8, and medicated with Morphine 2 mg IVP per do. BS 136, and regular insulin 2 units given sc per sliding scale per do. German Lo RN
--- NOTE | 2018-04-15 16:55 | NUR ---
BP 157/100, and patient nitropaste given per do, RN explained pain med side effects prior to administration. German Lo RN
--- NOTE | 2018-04-15 20:30 | NUR ---
ARMATURE AND ROTOR WINDER - REC'D PT. SITTING/DANGLING ON EDGE OF BED. PT. IS TELLING ME ABOUT HER LIFE, MEDS, AND HOW SHE IS "TAKING HER OWN MEDS" AT PRESENT. RN QUESTIONED PT. ABOUT "HER MEDS" & TALENT DEVELOPMENT DIRECTOR - ED WENT IN PT'S RM. & QUESTIONED PT. RE: MEDS. SHE IS NOT ONLY REFUSING ALL TXS BUT SHE IS REFUSING TO TELL US "WHAT" MEDS SHE IS TAKING. RN PLEADED W/PT. TO TELL ME "WHAT MEDS WORK FOR HER?" & PT. RETORTED, "LET ME TELL YOU WHAT MEDS 'DON'T' WORK FOR ME. CALLED HOUSE VIRGILIOELLI & SHE STATED "THAT WE CANNOT POLICE WHAT'S IN HER BAG & KEEP DOOR OPEN, IF SHE COMPLAINS,THEN MENTION SHE CAN GO AMA. PT. IS REFUSING CLONIDINE, MORPHINE, ATIVAN, ACCUCHECKS & ETC. CONT.POC.
[2018-04-16] VITALS (19 sets, daily range): BP systolic 99–185; BP diastolic 50–114
--- NOTE | 2018-04-16 00:35 | NUR ---
PHYSICAL THERAPY INSTRUCTOR - PT.IS RESTING W/EYES CLOSED. DROWSY WHEN AWOKEN. WHILE ON PHONE W/SAVANA ISAAC - HE WAS MADE AWARE OF PT'S NONCOMPLIANCE. NO ORDERS REC'D. PT'S B/P'S ARE STILL HIGH. PT. IS STILL REFUSING ANY MEDS FOR HTN. PT. IS ALSO REFUSING ACCUCHECKS. CONT. POC.
[2018-04-16] MEDS: ALBUTEROL FS 2.5 MG/3 ML VIAL.NEB NEB SCH ×4 (01:41→19:47)
[2018-04-16] MEDS: IPRATROPIUM NEB FS 0.5 MG/2.5 ML AMPUL.NEB NEB SCH ×4 (01:41→19:47)
[2018-04-16] MEDS: hydrALAZINE HCL IV 20 MG VIAL IV PRN ×2 (01:50→21:58)
[2018-04-16] MEDS: ONDANSETRON 4 MG TAB.RAPDIS PO PRN ×2 (04:28→21:34)
[2018-04-16] MEDS: CLONIDINE HCL 0.1 MG TABLET PO SCH ×3 (04:55→21:00)
--- NOTE | 2018-04-16 06:50 | NUR ---
MANAGER SOCIAL RESPONSIBILITY - PT. FINALLY GOT ALITTLE BIT OF SLEEP. PT. IS STILL REFUSING MOST CARE ORDERS. PT. REFUSED BLOOD WORK THIS AM, CLONIDINE MED, BUT PT. DID AGREE TO TAKE ZOFRAN 4MG/IVP. PT. IS STILL EXPERIENCING SOME NAUSEA (NO EMESIS). REPORT ENDORSED TO RACHEL SHAH. CONT.POC.
--- NOTE | 2018-04-16 07:10 | NUR ---
RN INITIAL NOTES RECEIVED PT AWAKE, A/OX4. ON 02 AT 3LPM VIA NC. NO RESPIRATORY DISTRESS NOTED. NO SOB NOTED. DENIES ANY PAIN. MIDLINE IN PLACE. FLUSHED WITH NS. SKIN INTACT. PT CONTINENT AND AMBULATORY. PT COMFORTABLE. CALL LIGHT WITHIN REACH. WILL MONITOR.
[2018-04-16] MEDS: BLOOD SUGAR DIAGNOSTIC 1 EACH STRIP IN SCH ×4 (07:30→23:00)
[2018-04-16] MEDS: LISINOPRIL (20MG) 20 MG TABLET PO SCH (08:20)
[2018-04-16] MEDS: PANTOPRAZOLE 40 MG VIAL IV SCH (08:20)
[2018-04-16] MEDS: ENOXAPARIN SODIUM 40 MG/0.4 ML DISP.SYRIN SQ SCH (08:35)
[2018-04-16] MEDS: methylPREDNISolone SOD SUCC 40 MG/ML VIAL IV SCH ×3 (08:38→17:33)
--- NOTE | 2018-04-16 12:00 | NUR ---
RN NOTES SEEN AND EXAMINED BY DR BUCKNER. PT AWAKE, A/OX4. ON 02 AT 3LPM VIA NC. NO RESPIRATORY DISTRESS NOTED. NO SOB NOTED. DENIES ANY PAIN. MD AWARE THAT PT REFUSES EVERYTHING FROM MEDICATIONS TO BLOOD DRAW. EXPLAINED IMPORTANCE, RISK VS BENEFITS. PT STILL REFUSED. KEPT PT COMFORTABLE. WILL MONITOR.
--- NOTE | 2018-04-16 15:50 | NUR ---
RN NOTES PT TRANSFERRED TO ROOM 325-1. PT A/OX4. NO SOB NOTED. DENIES ANY PAIN. ENDORSED TO RON SHAH AT BEDSIDE. TOOK OVER PT'S CARE.
--- NOTE | 2018-04-16 16:30 | NUR ---
SCRUM PRODUCT OWNER FROM ICU RECEIVED REPORT FROM PROFESSIONAL SECURITY OFFICER, VIA PHONE. RECEIVED PT. IN ROOM 325 BED 1, PT. IS IN BED A&OX4. BREATHING UNLABORED AND EVENLY ON ROOM AIR. OXYGEN WAS STARTED AT 3L/MIN VIA NASAL CANNULA. IV ACCESS IS INTACT AND PATENT. PT. C/O PAIN 10/10 IN BACK, AND CHEST, AND MEDICATION WAS OFFERED. BED IS IN LOWEST, AND LOCKED POSITION. 2 SIDE RAILS UP, AND INSTRUCTED PT. TO USE CALL LIGHT FOR ASSISTANCE.
[2018-04-16] MEDS: MORPHINE SULFATE INJ 4 MG/ML DISP.SYRIN IV PRN (16:43)
[2018-04-16] MEDS: INSULIN REGULAR, HUMAN 100 UNIT/ML 3 ML VIAL SQ PRN (17:31)
--- NOTE | 2018-04-16 19:30 | NUR ---
RN CLOSING NOTES PT. IS IN BED A&OX4. PT. CHANGED TO BED 2. BREATHING UNLABORED, AND EVENLY ON ROOM AIR. NO S/S OF ACUTE DISTRESS. BED IS IN LOWEST, AND LOCKED POSITION. 2 SIDE RAILS UP, AND CALL LIGHT WITHIN REACH. WILL ENDORSE REPORT TO NURSE.
--- NOTE | 2018-04-16 19:45 | NUR ---
MS/OPTICAL COATING TECHNICIAN; RECEIVED PT IN BED AWAKE, ALERT AND ORIENTED. BREATHING NON LABORED. WITH O2 3L NC ON. RT WITH THE PT. GIVING BREATHING TREATMENT. BED ON LOWER POSITION AND LOCKED FOR SAFETY. SIDE RAILS X 2 ARE UP FOR SAFETY. CONTINUE TO MONITOR. CALL LIGHT WITHIN REACH.
--- NOTE | 2018-04-16 21:00 | NUR ---
catapress refused to be taken by patient
--- NOTE | 2018-04-16 21:15 | NUR ---
MS/CRITICAL CARE NURSE SPECIALIST; PT BP 176/98, P 87 PT REFUSED CATAPRES IT MAKE HER SICK. CHARGE NURSE ARMANI TALKED TO HER.
--- NOTE | 2018-04-16 21:30 | NUR ---
ms/rn notes patient b/p elevated, administer hydralazine iv as ordered protocol, agreed with iv hydralazine to be given, grace reported nusea and given po by mouth medicine as ordered , able to tolertaed med. scedukled med catapress not given,
--- NOTE | 2018-04-16 23:00 | NUR ---
MS/POWER SHOVEL OPERATOR; UNABLE TO DO BS CHECK [place] REFUSED IT.
--- NOTE | 2018-04-16 23:10 | NUR ---
MS/EMERGENCY MAN; PT WAS OFFERED ATIVAN TO MAKE HER RELAX BUT SHE REFUSED ALSO.
[2018-04-17] MEDS: ALBUTEROL FS 2.5 MG/3 ML VIAL.NEB NEB SCH ×3 (01:30→13:30)
[2018-04-17] MEDS: IPRATROPIUM NEB FS 0.5 MG/2.5 ML AMPUL.NEB NEB SCH ×3 (01:30→13:30)
[2018-04-17] MEDS: BLOOD SUGAR DIAGNOSTIC 1 EACH STRIP IN SCH ×2 (06:40→12:00)
--- NOTE | 2018-04-17 07:20 | NUR ---
RN OPENING NOTES RECEIVED PT. IN BED AWAKE, A&OX4. BREATHING UNLABORED, AND EVENLY ON ROOM AIR. NO S/S OF ACUTE DISTRESS. PT. DENIES NAUSEA AND VOMITING. IV FLUIDS AT BEDSIDE. BED IS IN LOWEST, AND LOCKED POSITION. 2 SIDE RAILS UP, AND CALL LIGHT WITHIN REACH. WILL CONTINUE TO ASSESS AND MONITOR.
[2018-04-17 08:00] VITALS: BP 163/101
[2018-04-17] MEDS: LISINOPRIL (20MG) 20 MG TABLET PO SCH (08:32)
[2018-04-17] MEDS: PANTOPRAZOLE 40 MG VIAL IV SCH (08:32)
[2018-04-17] MEDS: methylPREDNISolone SOD SUCC 40 MG/ML VIAL IV SCH ×2 (08:34→13:00)
[2018-04-17] MEDS: ENOXAPARIN SODIUM 40 MG/0.4 ML DISP.SYRIN SQ SCH (08:57)
--- NOTE | 2018-04-17 11:45 | NUR ---
PT. HAS ELEVATED BP 166/83 PULSE 90, PT.WAS OFFERED TO TAKE BP MEDICATION PER ORDERS, AND PT. REFUSED. WAS NOTIFIED.
--- NOTE | 2018-04-17 11:47 | NUR ---
ON AMBULATION PT. WAS ABLE TO MAINTAIN SPO2 >92% ON ROOM AIR, MD WAS INFORMED, AND PT. IS OKAY TO BE DISCHARGED.
[2018-04-17 11:49] VITALS: BP 166/83
[2018-04-17] MEDS: hydrALAZINE HCL IV 20 MG VIAL IV PRN (11:49)
--- NOTE | 2018-04-17 12:50 | NUR ---
RESEARCH PROFESSIONAL PT. WAS DISCHARGED IN STABLE CONDITION. DISCHARGE INSTRUCTIONS, AND EDUCATION WAS GIVEN AND PT. VERBALIZED UNDERSTANDING. BELONGINGS LIST WAS CHECKED AND SIGNED. IV AND ID WAS REMOVED WITHOUT COMPLICATIONS. PRESCRIPTION WAS GIVEN WITH EDUCATION. ALL QUESTIONS WERE ANSWERED. PT. LEFT WITH DISCHARGE PACKET. PT. LEFT IN A TAXI.
--- NOTE | 2018-04-17 13:33 | NUR ---
IV WAS REMOVED WITHOUT COMPLICATIONS, PT. WAS DISCHARGED.
== END 2018-04-17 13:30 | disposition home or self-care (01) | DRG 133 ==
LOC: ER 18:49 → ICU 20:34 → MED 04-16 15:55
PROVIDERS: ADMIT Nurse Practitioner Acute Care; ATTEND Nurse Practitioner Acute Care
DX: J96.02 Acute respiratory failure with hypercapnia (principal); E44.0 Moderate protein-calorie malnutrition; J44.1 Chronic obstructive pulmonary disease with (acute) exacerbation; E66.2 Morbid (severe) obesity with alveolar hypoventilation; D72.829 Elevated white blood cell count, unspecified; E11.9 Type 2 diabetes mellitus without complications; F17.200 Nicotine dependence, unspecified, uncomplicated; I25.10 Atherosclerotic heart disease of native coronary artery without angina pectoris; K21.9 Gastro-esophageal reflux disease without esophagitis; I16.0 Hypertensive urgency; Z90.49 Acquired absence of other specified parts of digestive tract; Z68.30 Body mass index [BMI] 30.0-30.9, adult; M26.609 Unspecified temporomandibular joint disorder, unspecified side; T38.0X5A Adverse effect of glucocorticoids and synthetic analogues, initial encounter; Y92.009 Unspecified place in unspecified non-institutional (private) residence as the place of occurrence of the external cause; Z91.14 Patient's other noncompliance with medication regimen; Z79.84 Long term (current) use of oral hypoglycemic drugs
CPT/HCPCS: 36415; 36569; 36600; 71045-TC; 80048-TC; 80076-TC; 82803-TC; 82962-TC; 83880; 84484-TC; 85025-TC; 87081-TC; 99082-TC; A4606; C9113; J0360; J1200; J1650; J1815; J2060; J2270; J2920; J2930; J3475; J3490; J7030; Q0162; Z7610

== ENCOUNTER 2019-05-21 04:53 | Emergency (ER) | payer MEDICARE, MEDICAID ==
[~2019-05-21] VITALS: Ht 162.6 cm; Wt 80.7 kg
[~2019-05-21 04:53] MED LIST changes: -CEPH-570 PO
--- NOTE | 2019-05-21 04:55 | NUR ---
PT [id number] FROM HOME C/O ITCHING ALL OVER/FACIAL SWELLING/THROAT FEELS SWOLLEN X 2 HOURS. VSS. BENEDRYL 50MG IV GIVEN SHIP'S ELECTRONIC WARFARE OFFICER. BS 209. PT AOX4. PT ON MONITOR IN BED 2. WILL CONTINUE TO MONITOR.
[2019-05-21] MEDS ORDERED: FAMOTIDINE/PF INJ 20 MG/2 ML VIAL IV ONE ×2 (05:19→05:30)
[2019-05-21] MEDS ORDERED: methylPREDNISolone SOD SUCC 125 MG/2ML VIAL ONE (05:19)
--- NOTE | 2019-05-21 05:26 | NUR ---
RADIOLOGY AT BEDSIDE FOR XRAY
[2019-05-21] MEDS ORDERED: methylPREDNISolone SOD SUCC 125 MG/2ML VIAL IV ONE (05:30)
[2019-05-21 06:25] VITALS: BP 165/106
--- NOTE | 2019-05-21 07:00 | NUR ---
IV removed. Catheter intact and site benign. Pressure and 4x4 applied to site. No bleeding noted.Patient discharged to home in stable condition. Written and verbal after care instructions given. Patient verbalizes understanding of instruction.
== END 2019-05-21 07:09 | disposition home or self-care (01) ==
LOC: ER 05:00
DX: T78.1XXA Other adverse food reactions, not elsewhere classified, initial encounter (principal); L50.9 Urticaria, unspecified; I10 Essential (primary) hypertension; E11.9 Type 2 diabetes mellitus without complications; F41.9 Anxiety disorder, unspecified; J44.9 Chronic obstructive pulmonary disease, unspecified; Z90.49 Acquired absence of other specified parts of digestive tract; Z88.5 Allergy status to narcotic agent; Z88.1 Allergy status to other antibiotic agents; Z79.899 Other long term (current) drug therapy; Z79.84 Long term (current) use of oral hypoglycemic drugs; X58.XXXA Exposure to other specified factors, initial encounter
CPT/HCPCS: 71045; 96374; 96375; 99283; J2930; J3490

== ENCOUNTER 2020-01-08 22:35 | Inpatient (IN) | payer MEDICARE, MEDICAID ==
[~2020-01-08] VITALS: Ht 162.6 cm; Wt 73.9 kg
[2020-01-08] MEDS ORDERED: methylPREDNISolone SOD SUCC 125 MG/2ML VIAL ONE (22:58)
--- NOTE | 2020-01-08 22:58 | NUR ---
Note prachione in ED - 01/08/20 at 2357 by [email or web address] PT BIB RA WITH A C/O SOB. PT ARRIVED ON A NRB MASK. PT WAS PLACED ON THE MONITOR AND POX. RT WAS CALLED. 18G IV STARTED IN LAC. BLOOD WAS DRAWN AND SENT
--- NOTE | 2020-01-08 22:58 | NUR ---
PT BIB RA WITH A C/O SOB. PT ARRIVED ON A NRB MASK. PT WAS PLACED ON THE MONITOR AND POX. RT WAS CALLED. 20G IV STARTED IN LAC. BLOOD WAS DRAWN AND SENT
[2020-01-08] MEDS ORDERED: IPRATROPIUM NEB FS 0.5 MG/2.5 ML AMPUL.NEB NEB ONE (23:00)
[2020-01-08] MEDS ORDERED: ALBUTEROL FS 2.5 MG/3 ML VIAL.NEB NEB ONE (23:00)
[2020-01-08] MEDS ORDERED: methylPREDNISolone SOD SUCC 125 MG/2ML VIAL IV ONE (23:00)
[2020-01-08 23:05] LABS: BASOPHILS # (AUTO) 0.1 /CMM (0.0-0.2); BASOPHILS % (AUTO) 0.8 % (0.0-2.0); HEMATOCRIT 44 % (33-45); HEMOGLOBIN 14.2 g/dL (11.5-14.8); LYMPHOCYTES # (AUTO) 2.4 /CMM (0.8-4.8); LYMPHOCYTES % (AUTO) 15.1 % (20.0-44.0); MEAN CORPUSCULAR HGB CONC 32 g/dl (31.0-36.0); MEAN CORPUSCULAR VOLUME 98 fL (82-100); MONOCYTES # (AUTO) 0.5 /CMM (0.1-1.30); NEUTROPHILS # (AUTO) 12.6 /CMM (1.8-8.9); NEUTROPHILS % (AUTO) 81.1 % (43.0-81.0); PLATELET COUNT (AUTO) 405 /CMM (150-450); RED BLOOD CELL COUNT(AUTO) 4.51 MIL/uL (4.0-5.2); WHITE BLOOD COUNT (AUTO) 15.5 K/uL (4.3-11.0)
[2020-01-08] MEDS ORDERED: ALBUTEROL FS 2.5 MG/3 ML VIAL.NEB ONE (23:05)
[2020-01-08] MEDS ORDERED: IPRATROPIUM NEB FS 0.5 MG/2.5 ML AMPUL.NEB ONE (23:05)
--- NOTE | 2020-01-08 23:07 | NUR ---
RT IS AT THE BEDSIDE. BREATHING TX STARTED.
--- NOTE | 2020-01-08 23:10 | NUR ---
PT REFUSED ABG. DR GRIJALVA WAS NOTIFIED.
[2020-01-08 23:17] LABS: CALCIUM, SERUM 9.4 mg/dL (8.5-10.1); CARBON DIOXIDE 28 mmol/L (21-32); CHLORIDE 102 mmol/L (98-107); CREATININE 1.2 mg/dL (0.6-1.3); GLUCOSE 179 mg/dL (74-106); POTASSIUM 3.6 mmol/L (3.5-5.1); SODIUM SERUM 142 mmol/L (136-145); UREA NITROGEN, BLOOD 24 mg/dL (7-18)
[2020-01-08] MEDS ORDERED: MORPHINE SULFATE INJ 4 MG/ML DISP.SYRIN ONE (23:25)
[2020-01-08] MEDS ORDERED: ONDANSETRON HCL/PF 4 MG/2 ML VIAL ONE (23:25)
--- NOTE | 2020-01-08 23:26 | NUR ---
PT REC'D MEDICATION ORDERED. BREATHING TX IS FINISHED. RT IS AT THE BEDSIDE.
[2020-01-08 23:30] LABS: ALANINE AMINOTRANSFERASE 28 U/L (12-78); ALBUMIN 3.4 g/dL (3.4-5.0); ALKALINE PHOSPHATASE 73 U/L (46-116); ASPARTATE AMINOTRANSFERASE 20 U/L (15-37); B-TYPE NATRIURETIC PEPTIDE 80 PG/ML (0-125); BILIRUBIN,DIRECT 0.2 mg/dL (0.0-0.2); BILIRUBIN,TOTAL 0.4 mg/dL (0.2-1.0); TOTAL PROTEIN, SERUM 8.1 g/dL (6.4-8.2)
[2020-01-08] MEDS ORDERED: MORPHINE SULFATE INJ 2 MG/ML DISP.SYRIN IV ONE (23:30)
[2020-01-08] MEDS ORDERED: ONDANSETRON HCL/PF 4 MG/2 ML VIAL IVP ONE (23:30)
[2020-01-08] MEDS ORDERED: FURO-145 PO (23:55)
[2020-01-08] MEDS ORDERED: DEXA4TAB2 PO (23:55)
[2020-01-08] MEDS ORDERED: IPRA4AER IH (23:55)
[2020-01-08] MEDS ORDERED: AMLO2.5T2 PO (23:55)
--- NOTE | 2020-01-08 23:56 | NUR ---
PT APPEARS TO BE RESTING COMFORTABLY.
--- NOTE | 2020-01-09 01:11 | NUR ---
NONI CHRISTIAN SPOKE TO FROM [facility]
--- NOTE | 2020-01-09 01:47 | NUR ---
PT APPEARS TO BE RESTING COMFORTABLY WITH NO S/S OF PAIN OR DISTRESS.
--- NOTE | 2020-01-09 02:00 | NUR ---
PT REC'D WARM BLANKETS AND A PILLOW. PT IS ON 4L O2 VIA NC AND SATURATING AT 100%. PT'S VSS.
--- NOTE | 2020-01-09 02:20 | NUR ---
PT'S PULOMONOLOGIST IS MOMO PANIAGUA. [phone]
--- NOTE | 2020-01-09 02:36 | NUR ---
Report given to ALYSSA Harrison for ZOLTAN
--- NOTE | 2020-01-09 02:38 | NUR ---
PT RESTING COMFORTABLY. VSS. NO ACUTE DISTRESS NOTED AT THIS TIME. WILL CONTINUE TO MONITOR FOR SAFETY.
--- NOTE | 2020-01-09 04:15 | NUR ---
PT OK TO BE ADMITTED PER ADMITTING REP.
--- NOTE | 2020-01-09 05:05 | NUR ---
ER TALKING TO SHAWANDA ISLAS DNP REGARDING PT ADMISSION.
--- NOTE | 2020-01-09 05:07 | NUR ---
REPORT GIVEN TO ALYSSA JENNINGS
[2020-01-09 05:30] VITALS: BP 154/89
[2020-01-09] MEDS ORDERED: ACETAMINOPHEN 325 MG TABLET PO PRN (05:30)
[2020-01-09] MEDS ORDERED: HYDROCODONE/APAP 5/325MG 1 EACH TABLET PO PRN (05:30)
[2020-01-09] MEDS ORDERED: MAG HYDROX/AL HYDROX/SIMETH 30 ML UDC PO PRN (05:30)
[2020-01-09] MEDS ORDERED: Z GUARD REMEDY 2 OZ OINT TP PRN (05:30)
[2020-01-09] MEDS ORDERED: ONDANSETRON HCL/PF 4 MG/2 ML VIAL IVP PRN (05:30)
[2020-01-09] MEDS ORDERED: MAGNESIUM HYDROXIDE 30 ML UDC PO PRN (05:30)
--- NOTE | 2020-01-09 05:30 | NUR ---
PATIENT ARRIVED FROM ER, A/O X4. NO SOB NOTED. CALL LIGHT WITHIN REACH. BED IN LOWEST AND LOCKED POSITION. PATIENT IS LOOKING FOR HER BROWN SHIRT AND SHE BELIEVES IT WAS LEFT IN ER, WILL ENDORSE TO THE NEXT SHIFT RN.
--- NOTE | 2020-01-09 05:53 | NUR ---
PT TRANSFERRED TO BED IN STABLE CONDITION
--- NOTE | 2020-01-09 07:30 | NUR ---
RN OPENING NOTES RECEIVED PATIENT IN BED RESTING. A/OX3, ABLE TO MAKE NEEDS KNOWN. NOT IN ANY FORM OF DISTRESS, NO SOB. IV ACCESS INTCATC AND PATENT. KEPT PATIENT SAFE AND COMFORTABLE. BED IN LOW/LOCKED POSITION. SIDERAILS UPX2, CALL LIGHT IN REACH. WILL MONITOR ACCORDINGLY
[2020-01-09 08:00] VITALS: BP 154/89
[2020-01-09] MEDS: IPRATROPIUM NEB FS 0.5 MG/2.5 ML AMPUL.NEB NEB SCH ×5 (08:05→23:30)
[2020-01-09] MEDS: ALBUTEROL FS 2.5 MG/3 ML VIAL.NEB NEB SCH ×5 (08:05→23:30)
--- NOTE | 2020-01-09 10:55 | NUR ---
DR SALCEDO AT BEDSIDE MADE ROUNDS. MD GOMEZ TO ORDER MORPHINE. NEW ORDER OF MOPRHINE IV 1MG Q4HRS PRN NOTED AND WILL CARRY OUT
[2020-01-09] MEDS: methylPREDNISolone SOD SUCC 125 MG/2ML VIAL IV SCH ×3 (10:59→17:55)
[2020-01-09] MEDS: MORPHINE SULFATE INJ 4 MG/ML DISP.SYRIN IV PRN ×2 (11:53→18:23)
[2020-01-09] MEDS: CEFTRIAXONE 1 G in IV D5W 50 ML IV SCH (12:46)
[2020-01-09] MEDS ORDERED: IV NS 0.9% 50 ML IV PRN (13:30)
[2020-01-09] MEDS: AZITHROMYCIN 500 MG in IV D5W 250 ML IV SCH (14:47)
--- NOTE | 2020-01-09 15:30 | NUR ---
rn notes iv access was infiltrated. removed iv access, tip intact. applied pressure, no bleeding. extremity elevated. refused iv insertion. per patient he wanted female nurse to insert iv. Addendum: 01/09/20 at 1849 by NATALY KLINE BONG Harry attempted to insert but patient refused and agitatedly said. "I want a female nurse!"
--- NOTE | 2020-01-09 15:55 | NUR ---
rn notes ALYSSA Can from ER inserted iv access to patient. left FA gauge 20, intact and patent.
[2020-01-09 16:00] VITALS: BP 131/60
--- NOTE | 2020-01-09 16:50 | NUR ---
rn notes Upon entering patient's room. patient was agitated and hostile. yelled that she wants another nurse to take care of her. Primary nurse asked politely what the problem is but she just yelled "i dont want you to take care of me! Give me another nurse". Primary nurse gave her space. Notified Charge nurse.
[2020-01-09] MEDS: GUAIFENESIN/D-METHORPHAN HB 5 ML UDC PO PRN (18:26)
--- NOTE | 2020-01-09 18:27 | NUR ---
alyssa notes Complaints of chest pain 07/11, non radiating. morphine 1mg iv given as ordered. Also Robitusin PO 10ml given as ordered for cough Addendum: 01/09/20 at 1831 by NATALY KLINE Medications given by ALYSSA Márquez
--- NOTE | 2020-01-09 19:36 | NUR ---
RN CLOSING NOTES BEDSIDE REPORT GIVEN. PATIENT GOT UPSET AND YELLED "GET OUT! I DONT WANT YOU IN MY ROOM!" REFERRING TO PRIMARY NURSE. PRIMARY NURSE WENT OUT AND GAVE REPORT TO BUCKLE ATTACHER OUTSIDE THE ROOM. PATIENT IN STABLE CONDITION. NOT IN ANY FORM OF DISTRESS. ENDORSED ACCORDINGLY.
--- NOTE | 2020-01-09 19:37 | NUR ---
MS/RN OPENING NOTES: RECEIVED PATIENT VERY UPSET ABOUT THE CARE SHE RECEIVED DURING DAY SHIFT. PER PATIENT "I WANT THAT MAN OUT OF MY ROOM, I WILL REPORT HIM. GET OUT OF MY ROOM", YELLING AT DAY SHIFT NURSE DURING PATIENT REPORT FOR CHANGE OF SHIFT. CALMED PATIENT DOWN BY EXPLAINING THAT I WILL BE THE NEON PUMPER NURSE AND ADDRESSED ALL CONCERNS AT THIS TIME. NO COMPLAINS OF PAIN OR DISCOMFORT AT THIS TIME. NO SOB NOTED, BREATHING EVEN AND UNLABORED. SKIN INTACT, IV SITE PRESENT ON THE LEFT FA #20G S/L. WILL CONTINUE MONITORING PATIENT ACCORDINGLY.
--- NOTE | 2020-01-09 19:50 | NUR ---
MS/RN NOTES: BROUGHT PT. WARM BLANKETS, INTRODUCED THE RESEARCH ATTORNEY; MADDIE THAT WILL BE TAKING CARE OF HER. PATIENT IS NOW HAPPY WITH THE RESEARCH ATTORNEY AND IN A CALM MANNER, AND WANTS THE DOOR TO BE CLOSED.
[2020-01-09 20:00] VITALS: BP 146/80
--- NOTE | 2020-01-09 21:08 | NUR ---
MS/RN NOTES: PER RT, PATIENT REFUSED BREATHING TREATMENT.
[2020-01-10] MEDS: ALBUTEROL FS 2.5 MG/3 ML VIAL.NEB NEB SCH ×5 (03:17→19:56)
[2020-01-10] MEDS: IPRATROPIUM NEB FS 0.5 MG/2.5 ML AMPUL.NEB NEB SCH ×5 (03:17→19:57)
--- NOTE | 2020-01-10 04:02 | NUR ---
MS/RN NOTES: PATIENT BECAME VERY UPSET THAT WE COULDN'T GIVE HER SOLUMEDROL. EXPLAINED TO THE PATIENT IT IS SCHEDULED, NEXT DUE AT 9AM. PATIENT RECEIVED BREATHING TREATMENT RECENTLY, AND WAS OFFERED COUGH SYRUP FOR CONGESTION. PATIENT BECAME MORE UPSET "WHAT DO YOU EXPECT ME TO DO, WAIT TIL 9AM WHEN I'M ? GET OUT OF MY ROOM! CLOSE MY DOOR!" CONTINUED CUSSING AT THE STAFF SAYING INAPPROPRIATE WORDS. WILL CONTINUE TO MONITOR.
[2020-01-10] MEDS: GUAIFENESIN/D-METHORPHAN HB 5 ML UDC PO PRN ×3 (04:26→21:16)
--- NOTE | 2020-01-10 06:48 | NUR ---
MS/RN CLOSING NOTES: PATIENT SLEEPING IN BED. REMAINS A/OX4. EASILY AWAKEN BY NAME AND LIGHT TOUCH. NO SOB NOTED, NO S/S OF DISTRESS. NO COMPLAINS OF PAIN OR DISCOMFORT. IV LINE ON THE LEFT FA #20G INTACT, PATENT AND FLUSHING WELL. KEPT PT WARM AND COMFORTABLE THROUGH THE NIGHT. ALL MEDS GIVEN ORDERED, TOLERATED WELL. ALL NEEDS MET AND RENDERED, SAFETY MEASURES KEPT IN PLACE, BED IN LOW, LOCKED POSITION WITH SR UP X2. CALL LIGHT WITHIN REACH, WILL ENDORSE TO DAY SHIFT FOR ZOLTAN.
--- NOTE | 2020-01-10 07:42 | NUR ---
MS RN OPENING NOTE PATIENT IN BED RESTING COMFORTABLY. PATIENT IN NO ACUTE DISTRESS. NO SOB NOTED. PATIENT BREATHING IS EVEN AND UNLABORED. PATIENT SAFETY PRECAUTIONS IN PLACE. PATIENT BED IS LOCKED AND IN LOWEST POSITION. CALL LIGHT WITHIN REACH. WILL CONTINUE TO MONITOR.
[2020-01-10 08:00] VITALS: BP 140/76
[2020-01-10] MEDS: methylPREDNISolone SOD SUCC 125 MG/2ML VIAL IV SCH ×4 (08:24→17:05)
[2020-01-10] MEDS: MORPHINE SULFATE INJ 2 MG/ML DISP.SYRIN IM PRN ×2 (08:24→21:16)
[2020-01-10] MEDS ORDERED: DEXTROSE 50%-WATER 50 ML DISP.SYRIN IV PRN (08:30)
[2020-01-10] MEDS ORDERED: *INSULIN REGULAR(HUMULIN R)HUM 100 UNIT/ML VIAL SQ PRN (08:30)
[2020-01-10] MEDS: ENOXAPARIN SODIUM 40 MG/0.4 ML DISP.SYRIN SQ SCH (09:00)
[2020-01-10] MEDS: METFORMIN 850 MG TABLET PO SCH ×2 (09:00→16:55)
[2020-01-10] MEDS: AMLODIPINE BESYLATE 2.5 MG TABLET PO SCH (09:00)
--- NOTE | 2020-01-10 09:07 | NUR ---
MS RN NOTE PATIENT REFUSED AMLODIPINE, METFORMIN, AND LOVENOX 0900 DOSE. EDUCATED RISKS VS BENEFITS. PATIENT STATES " I ALREADY TOOK AMLODIPINE AND METFORMIN, AT BEDSIDE". THIS WAS FIRST TIME I WAS AWARE PATIENT HAS MEDICATION AT BEDSIDE IN BAG. I STATED TO PATIENT KINDLY THAT MEDICATIONS CAN NOT BE AT BEDSIDE, AND MUST BE GIVEN TO PHARMACY FOR SAFE KEEPING DURING HOSPITALIZATION AND WILL BE GIVEN BACK WHEN DISCHARGED. PATIENT GOT AGITATED, AND STATED "YOUR NOT THE BOSS, IM NOT GIVING YOU SHIT. NOBODY NEEDS TO GIVE ME ANYTHING I ALREADY HAVE, DONT YOU DARE TOUCH MY STUFF. GET OUT." CHARGE NURSE MADE AWARE AT THIS TIME. WILL INFORM AND NOTIFY DR. QUIROGA.
--- NOTE | 2020-01-10 09:16 | NUR ---
MS RN NOTE PATIENT REFUSING BLOOD DRAW FROM LAB. EDUCATED RISKS VS BENEFITS. PATIENT STATED " I DONT NEED ANY OF THAT, DONT COME BACK."
[2020-01-10] MEDS: BLOOD SUGAR DIAGNOSTIC 1 EACH STRIP VI SCH ×3 (12:00→21:19)
[2020-01-10] MEDS: CEFTRIAXONE 1 G in IV D5W 50 ML IV SCH (12:00)
--- NOTE | 2020-01-10 12:16 | NUR ---
MS RN NOTE PATIENT REFUSING TO HAVE BLOOD SUGAR CHECK. PATIENT STATES " I DONT EVEN DO THIS AT HOME, I DONT WANT ANY OF THAT POKING STUFF. ITS POINTLESS YOU DID NOT EVEN DO IT WHEN I FIRST GOT HERE.". EDUCATED TO PATIENT IMPORTANCE OF CHECKING BLOOD SUGAR. PATIENT CONTINUED TO REFUSE. PATIENT CONTINUES TO REFUSE GIVING HOME MEDICATIONS TO PHARMACY. INFORMED IMPORTANCE AND HOSPITAL POLICY TO NOT TAKE MEDICATIONS AND GIVE TO PHARMACY. PATIENT GETS AGITATED AND REFUSES.
--- NOTE | 2020-01-10 12:56 | NUR ---
MS RN NOTE PATIENT REFUSED TO HAVE IV ANTIBIOTIC ROCEPHIN. EXPLAINED IMPORTANCE TO MEDICATION COMPLIANCE, RISK VS BENEFITS. PATIENT STATED " I DO NOT WANT THAT, YOU NEED TO STOP GIVING ME THAT RIGHT NOW. YOU GUYS ARE OVER DOING IT WITH THE ANTIBIOTICS". PATIENT CONTINUED TO REFUSE.
[2020-01-10] MEDS: AZITHROMYCIN 500 MG in IV D5W 250 ML IV SCH (13:00)
--- NOTE | 2020-01-10 13:48 | NUR ---
MS RN NOTE PATIENT REFUSED AZITHROMYCIN IV ANTIBIOTIC. PATIENT IV WAS INFILTRATED, AND TAKEN OUT. PATIENT REFUSING TO HAVE IV ACCESS AT THIS TIME. PATIENT STATES "MY HAND IS TIRED FROM ALL THIS POKING, I JUST WANT MY ARM TO RELAX AND NO IV". EDUCATED IMPORTANCE OF MEDICATION COMPLIANCE TO PATIENT AND RISKS VS BENEFITS. PATIENT CONTINUED TO REFUSE AZITHROMYCIN.
[2020-01-10] MEDS: FLUTICASONE PROPIONATE 16 GM BOTTLE NS SCH ×3 (14:48→17:05)
[2020-01-10] MEDS: MONTELUKAST SODIUM (10MG) 10 MG TABLET PO SCH ×2 (14:48→21:17)
--- NOTE | 2020-01-10 14:52 | NUR ---
MS RN NOTE ASSEMBLY WORKER CAME TO SEE PATIENT REGARDING PATIENT REFUSAL TO GIVE MEDICATIONS TO PHARMACY. PATIENT YELLED AND GOT UPSET WITH ASSEMBLY WORKER ALBINA. PATIENT CONTINUED TO REFUSE GIVING MEDICATIONS TO PHARMACY. DR. QUIROGA NOTIFIED AND MADE AWARE. PER DR. QUIROGA PSYCH CONSULT TO BE PLACED.
--- NOTE | 2020-01-10 15:13 | NUR ---
Social service consult requested by SUJEY Sultana regarding pt. refusing to give her medication per hospital protocol and keeping it bedside. Per MD notes and chart review, pt is a 69-year-old female who was brought in by rescue complaining of shortness of breath and cough. Patient flulike symptoms with cough and runny nose that preceded this. She has a history of COPD in the past. COMPRESSOR HOUSE OPERATOR introduced self and purpose of the the visit. Pt is alert and oriented x 4. Pt. was initially pleasant with SW during the assessment. However, when COMPRESSOR HOUSE OPERATOR inquired with pt about her medications bedside, pt became upset and started yelling stating, " I don't care what the hospital policy is, I am not giving my medications to y'all." Pt reports, she has "COPD, diabetes, and other medical conditions and y'all are trying to kill me." COMPRESSOR HOUSE OPERATOR provided pt with active listening and supportive counseling. Pt states, she resides with her daughter in a dilapidated apartment [place] the [place]. Pt reports, she pays $1125 per month in rent and is too much for her. Pt' is requesting for resources to low income housing. Pt also reports, she has a power scooter at home that is not functional. Pt is requesting for a new power scooter and portable O2 tank. COMPRESSOR HOUSE OPERATOR informed child welfare caseworker Linda regarding pt's request. COMPRESSOR HOUSE OPERATOR provided pt with a contact information to Affordable Housing. Pt denies SI/HI and visual/auditory hallucinations at this time. COMPRESSOR HOUSE OPERATOR is available, if needed. COMPRESSOR HOUSE OPERATOR updated pt's RN and SUJEY Sultana regarding pt's refusal to give her medications per hospital policy.
--- NOTE | 2020-01-10 15:38 | NUR ---
MS RN NOTE PATIENT AGREED TO IV ACCESS. IV ACCESS IN LEFT HAND 22 GAUGE.
[2020-01-10 16:00] VITALS: BP 137/74
--- NOTE | 2020-01-10 16:55 | NUR ---
MS RN NOTE PATIENT CONTINUES TO REFUSE BLOOD SUGAR CHECK DESPITE EDUCATION AND RISKS VS BENEFITS. PATIENT REFUSES METFORMIN AT THIS TIME WELL. CONTINUED REINFORCEMENT FOR PATIENT NOT TO TAKE MEDICATIONS AT THE BEDSIDE. PATIENT CONTINUES TO REFUSE TO GIVE TO PHARMACY DESPITE HOSPITAL POLICIES AND EXPLANATION OF SAFETY FOR THE PATIENT.
--- NOTE | 2020-01-10 17:54 | NUR ---
MS RN NOTE PATIENT IS REFUSING FLONASE AND SOLU-MEDROL 1700. OFFERED THE MEDICATION 3X, EDUCATED RISKS VS BENEFITS AND IMPORTANCE TO COMPLIANCE OF MEDICATION. PATIENT STATED SHE WOULD TAKE IT AFTER SHE EATS. PATIENT FINISHED EATING AND WITH TIME FOR DIGESTION I OFFERED THE PATIENT AGAIN. PATIENT RAISED VOICED AND STATED " GET THAT DAMN SHIT AWAY FROM ME. YOU KEEP TELLING ME HOW IMPORTANT IS IT, I DONT CARE. I WANT TO FEEL GOOD TONIGHT AND REST WELL. I WILL ENJOY MY COFFEE. CANT YOU BOTHER SOMEONE ELSE".
--- NOTE | 2020-01-10 18:29 | NUR ---
MS RN CLOSING NOTE PATIENT IN CHAIR AT THIS TIME. PATIENT IN NO ACUTE DISTRESS. NO SOB NOTED. PATIENT BREATHING IS EVEN AND UNLABORED. PATIENT CONTINUES TO REFUSE GIVING BEDSIDE HOME MEDICATIONS TO PHARMACY. INSTRUCTED NOT TO TAKE ANY MEDICATIONS AT THE BEDSIDE. EDUCATED SAFETY RISKS. PATIENT REFUSES TO HAVE IV FLUIDS RUNNING AT THIS TIME. EDUCATED RISKS VS BENEFITS. PATIENT CONTINUED TO REFUSE. DR. QUIROGA IS AWARE OF PATIENT CONDITION AND NONCOMPLIANCE WITH MEDICAL CARE AND MEDICATION COMPLIANCE. SAFETY PRECAUTIONS IN PLACE. PATIENT KEPT CLEAN AND DRY THROUGHOUT SHIFT. PATIENT BED IS LOCKED AND IN LOWEST POSITION. CALL LIGHT WITHIN REACH. WILL ENDORSE CARE TO PM SHIFT FOR ZOLTAN.
--- NOTE | 2020-01-10 19:30 | NUR ---
MS RN OPENING NOTE RECEIVED PATIENT IN BED. A/OX4. TOLERATING ROOM AIR AT THIS TIME. RESPIRATIONS ARE EVEN AND UNLABORED. NO S/S SOB NOTED. STATES SHE IS IN PAIN, INFORMED HER WILL BEING PAIN MEDICATION SOON FINISHING REPORT FOR ALL PATIENTS. IN NO APPARENT DISTRESS. IV ACCESS IN LEFT HAND#20 RUNNING TKO. BED IS LOW AND LOCKED, HOB ELEVATED, SIDE RIALS UP X2. CALL LIGHT WITHIN REACH. WILL CONTINUE TO MONITOR.
[2020-01-10 20:00] VITALS: BP 145/77
--- NOTE | 2020-01-10 21:30 | NUR ---
MS RN NOTE ADMINISTERED PRN MORPHINE 1MG FOR PAIN 07/11 IN CHEST D/T CONSISTENT COUGHING. WILL CONTINUE TO MONITOR. WENDY RN WASTED 1MG OF MORPHINE ON ONMI CELL. WITNESS WASTE IN RX DESTROYER. ADMINISTERED PRN ROBITUSSIN 10MG PER PATIENT REQUEST. WILL CONTINUE TO MONITOR.
[2020-01-11] MEDS: IPRATROPIUM NEB FS 0.5 MG/2.5 ML AMPUL.NEB NEB SCH ×4 (01:45→19:48)
[2020-01-11] MEDS: ALBUTEROL FS 2.5 MG/3 ML VIAL.NEB NEB SCH ×4 (01:45→19:48)
--- NOTE | 2020-01-11 05:52 | NUR ---
MS RN NOTE PATIENT REFUSED AM LABS. EXPLAINED RISK AND BENEFITS. PATIENT CONTINUES TO REFUSE. WILL ENDORSE TO NEXT SHIFT
[2020-01-11] MEDS: BLOOD SUGAR DIAGNOSTIC 1 EACH STRIP VI SCH ×4 (06:10→22:00)
--- NOTE | 2020-01-11 06:10 | NUR ---
MS RN NOTE PATIENT REFUSED ACHS ACCUCHECK. EDUCATED PATIENT ON RISK AND BENEFITS. CONTINUES TO REFUSE. WILL ENDORSE NEXT SHIFT.
--- NOTE | 2020-01-11 06:39 | NUR ---
MS RN NOTE PATIENT INFORMED ME OF CONCERN OF HER MORNING MEDICATION NOT BEING THE SAME HER HOME REGIMEN. INFORMED HER WILL ENDORSE TO AM NURSE. MEDICATIONS STILL MISSING INCLUDE PROTONIX AND LISINOPRIL. PATIENT ALSO SAID SHE IS OK TO TAKE PILLS WITH MEALS BUT DOES NOT WANT ANY INJECTIONS OR IV PUSH WHEN EATING MEALS D/T CAUSING UPSET STOMACH. WILL ENDORSE TO AM SHIFT.
--- NOTE | 2020-01-11 06:41 | NUR ---
MS RN CLOSING NOTE PATIENT IN BED. A/OX4. TOLERATING ROOM AIR AT THIS TIME. RESPIRATIONS ARE EVEN AND UNLABORED. NO SOB NOTED. MANAGED PAIN WITH MORPHINE 1MG THROUGHOUT SHIFT. NO DISTRESS NOTED. IV ACCESS MAINTAINED IN LEFT HAND#20 SALINE LOCKED. BED IS LOW AND LOCKED, HOB ELEVATED, SIDE RIALS UP X2. CALL LIGHT WITHIN REACH. WILL ENDORSE TO NEXT SHIFT.
[2020-01-11 08:00] VITALS: BP 158/79
--- NOTE | 2020-01-11 08:00 | NUR ---
MS RN OPENING NOTES RECEIVED PATIENT IN BED AWAKE. A/OX4. NO CARDIAC OR RESPIRATORY DISTRESS NOTED. NO SOB NOTED. RESPIRATIONS ARE EVEN AND UNLABORED. TOLERATING ROOM AIR AT THIS TIME. RESPIRATIONS ARE EVEN AND UNLABORED. NO COMPLAINTS OF PAIN OR DISCOMFORT. IV ACCESS NOTED ON L HAND. FLUSHED IV, IV ACCESS NOTED TO BE INFILTRATED WHEN FLUSHED. APPLIED ICE TO REDUCE DISCOMFORT. WILL RE-INSERT NEW IV ACCESS. SAFETY PRECAUTIONS IN PLACE. BED IS LOW AND LOCKED, HOB ELEVATED, SIDE RIALS UP X2. CALL LIGHT WITHIN REACH. WILL CONTINUE TO MONITOR.
[2020-01-11] MEDS: methylPREDNISolone SOD SUCC 125 MG/2ML VIAL IV SCH (08:56)
[2020-01-11] MEDS: FLUTICASONE PROPIONATE 16 GM BOTTLE NS SCH ×2 (08:56→16:52)
[2020-01-11] MEDS: AMLODIPINE BESYLATE 2.5 MG TABLET PO SCH (08:57)
[2020-01-11] MEDS: METFORMIN 850 MG TABLET PO SCH ×2 (08:57→16:52)
[2020-01-11] MEDS: ENOXAPARIN SODIUM 40 MG/0.4 ML DISP.SYRIN SQ SCH (08:59)
--- NOTE | 2020-01-11 09:00 | NUR ---
REINSERTED IV REINSERTED IV ON L WRIST PER PTS PREFERENCE. SHE SATES SHE DOESNT WANT IT ON HER DOMINANT HAND. IV ACCESS INTACT AND PATENT. G22. FLUSHING WELL. NO S/S OF INFECTION OR INFILTRATION NOTED.
[2020-01-11] MEDS: LISINOPRIL (20MG) 20 MG TABLET PO SCH (09:20)
[2020-01-11] MEDS: GUAIFENESIN/D-METHORPHAN HB 5 ML UDC PO PRN ×3 (09:23→21:23)
--- NOTE | 2020-01-11 11:00 | NUR ---
DEMANDING BEHAVIOR PT TENDS TO BE VERY DEMANDING, SHE ALSO CLAIMS THAT NOBODY WAS IN HER ROOM TO CHECK ON HER WHEN I WAS JUST THERE ABOUT 10MIN AGO TO ATTEND TO HER NEEDS AND GIVE HER WATER. SHE IS VERY IMPATIENT AND WANTS THINGS DONE (NO MATTER WHAT IT IS) TO BE DONE RIGHT AWAY. WHEN SHE DOESNT GET WHAT SHE WANTS SHE STARTS YELLING AND SCREAMING.
[2020-01-11] MEDS: MORPHINE SULFATE INJ 2 MG/ML DISP.SYRIN IM PRN ×2 (11:10→23:10)
--- NOTE | 2020-01-11 11:45 | NUR ---
REFUSED LABS PT REFUSED BLOOD DRAW FOR LABS. EXPLAINED RISKS, CONSEQUENCES AND NEGATIVE OUTCOMES OF NONC OMCPLIANT BEHAVIORS. STILL REFUSED. SHE STATES, "IM NOT GONNA KEEPT GETTING STUCK! IM TIRED OF IT! FUCK ALL THAT!"
[2020-01-11] MEDS: CEFTRIAXONE 1 G in IV D5W 50 ML IV SCH (12:05)
[2020-01-11] MEDS ORDERED: methylPREDNISolone SOD SUCC 40 MG/ML VIAL IV SCH (13:00)
--- NOTE | 2020-01-11 13:30 | NUR ---
REFUSING IV ATB AND IV ACCESS/PT PULLED OUT HER IV PT CALLED ME TO HER ROOM WHILE HER AZITHROMYCIN IV WAS INFUSING. SHE WAS UPSET AND YELLING I GOT THERE. SHE SAYS, "TAKE THIS SHIT OFF! I CANT HANDLE THIS ANYMORE. IM TIRED OF THIS SHIT. I DONT WANT NO IVS, I DONT WANT THIS THING! TAKE IT OFF!" SHE KEPT YELLING. I INSISTED AND TRIED TO EXPLAIN TO HER THE IMPORTANCE OF KEEPING IV ACCESS ESPECIALLY IF AND WHEN SOMETHING HAPPENS TO HER, WE CAN EASILY ADMINISTER MEDICATIONS THAT COULD POTENTIALLY SAVE HER LIFE. SHE STATES "I DONT GIVE A FUCK! TAKE IT OFF. I DONT WANNA TAKE ANY IVS ANYMORE. AND IF YOU DONT TAKE IT OFF RIGHT NOW LIKE WHAT IM TELLING YOU TO DO, DWIGHT PULL IT OUT MYSELF." BEFORE I COULD SAY ANYTHING TO THE PT, SHE PULLS OUT HER IV AND STARTS BLEEDING FROM THE IV ACCESS SITE. I IMMEDIATELY APPLIED PRESSURE TO STOP THE BLEEDING. WAS NOTIFIED OF PTS BEHAVIORS.
--- NOTE | 2020-01-11 14:00 | NUR ---
DR QUIROGA AWARE OF PT BEHAVIORS DR QUIROGA AWARE OF PT BEHAVIORS. PER DR QUIROGA, D/C ALL IV ATB AND IV PREDNISONE ORDERS. CHANGED TO PO. ORDERED THE FLG: -PREDNISONE 20MG BID -AUGMENTIN 845/125MG Q12HRS
[2020-01-11] MEDS: AZITHROMYCIN 500 MG in IV D5W 250 ML IV SCH (14:13)
--- NOTE | 2020-01-11 16:00 | NUR ---
ROUNDS MADE ROUNDS, PT IN BED. AWAKE, SHE STATES THAT SHE DOESNT NEED AYTHING AT THE MOMENT.
[2020-01-11 16:16] VITALS: BP 146/88
[2020-01-11] MEDS: predniSONE 20 MG TABLET PO SCH (16:52)
--- NOTE | 2020-01-11 18:43 | NUR ---
MS RN CLOSING NOTES PATIENT IN BED AWAKE. A/OX4. NO CARDIAC OR RESPIRATORY DISTRESS NOTED. NO SOB NOTED. RESPIRATIONS ARE EVEN AND UNLABORED. TOLERATING ROOM AIR AT THIS TIME. RESPIRATIONS ARE EVEN AND UNLABORED. NO COMPLAINTS OF PAIN OR DISCOMFORT. PT CONTINUES TO BE VERY RUDE. SHE ALSO FABRICATES STORIES, STATING THE STAFF ARE NOT ATTENDING TO HER NEEDS, EVEN THOUGH I HAVE BEEN GOING BACK AND FORTH TO HER ROOM, EVERY TIME SHE CALLS FOR A NURSE. SHE IS STILL REFUSING IV ACCESS. SHE STRONGLY REFUSES IT. SHE STATES THAT IT US HER RIGHT NOT TO HAVE ANY IV ACCESS. EXPLAINED RISKS, CONSEQUENCES AND NEGATIVE OUTCOMES OF NON COMPLIANT BEHAVIORS. SAFETY PRECAUTIONS IN PLACE. BED IS LOW AND LOCKED, HOB ELEVATED, SIDE RIALS UP X2. CALL LIGHT WITHIN REACH. WILL CONTINUE TO MONITOR.
--- NOTE | 2020-01-11 19:30 | NUR ---
RN OPEN NOTES RECEIVED PATIENT AWAKE IN BED. A/OX4. NO SIGNS OF DISTRESS OR DISCOMFORT. BREATHING EVEN AND UNLABORED. ON 2LPM O2 VIA NC. PATIENT HAS NO IV ACCESS, SHE CONTINUES TO REFUSE. MD AWARE. BED IN LOW LOCKED POSITION WITH SIDE RAILS X2. CALL LIGHT WITHIN REACH. PATIENT ADVISED TO USE CALL LIGHT FOR ASSISTANCE. WILL CONTINUE TO MONITOR.
[2020-01-11 20:25] VITALS: BP 163/89
[2020-01-11] MEDS ORDERED: AMOX/CLAVULANATE 875 MG TABLET PO SCH (21:00)
[2020-01-11] MEDS: MONTELUKAST SODIUM (10MG) 10 MG TABLET PO SCH (21:18)
--- NOTE | 2020-01-11 22:00 | NUR ---
RN NOTES PATIENT REFUSED AUGMENTIN ADMINISTRATION AND TO HAVE BLOOD SUGAR CHECKED X3. PATIENT ADVISED OF RISK AND BENEFITS AND VERBALIZED UNDERSTANDING. WILL CONTINUE TO MONITOR.
[2020-01-11] MEDS: methylPREDNISolone SOD SUCC 40 MG/ML VIAL IV SCH (23:04)
[2020-01-12] MEDS: IPRATROPIUM NEB FS 0.5 MG/2.5 ML AMPUL.NEB NEB SCH ×3 (01:22→13:48)
[2020-01-12] MEDS: ALBUTEROL FS 2.5 MG/3 ML VIAL.NEB NEB SCH ×3 (01:22→13:48)
[2020-01-12 04:00] VITALS: BP_SYST 153; BP_SYST 155; BP_DIAS 100; BP_DIAS 80
[2020-01-12] MEDS: INSULIN REGULAR, HUMAN 100 UNIT/ML 3 ML VIAL SQ PRN ×2 (06:18→12:34)
[2020-01-12] MEDS: BLOOD SUGAR DIAGNOSTIC 1 EACH STRIP VI SCH ×2 (06:18→12:32)
[2020-01-12 06:49] LABS: BASOPHILS % (AUTO) 0.2 % (0.0-2.0); HEMATOCRIT 42 % (33-45); HEMOGLOBIN 13.5 g/dL (11.5-14.8); LYMPHOCYTES # (AUTO) 0.8 /CMM (0.8-4.8); LYMPHOCYTES % (AUTO) 5.9 % (20.0-44.0); MEAN CORPUSCULAR HGB CONC 32 g/dl (31.0-36.0); MEAN CORPUSCULAR VOLUME 97 fL (82-100); MONOCYTES # (AUTO) 0.7 /CMM (0.1-1.30); MONOCYTES % (AUTO) 4.6 % (2.0-12.0); NEUTROPHILS # (AUTO) 12.7 /CMM (1.8-8.9); NEUTROPHILS % (AUTO) 89.3 % (43.0-81.0); PLATELET COUNT (AUTO) 385 /CMM (150-450); RED BLOOD CELL COUNT(AUTO) 4.33 MIL/uL (4.0-5.2); WHITE BLOOD COUNT (AUTO) 14.2 K/uL (4.3-11.0)
--- NOTE | 2020-01-12 06:57 | NUR ---
RN CLOSING NOTES PATIENT AWAKE IN BED. A/OX4. NO SIGNS OF DISTRESS OR DISCOMFORT. BREATHING EVEN AND UNLABORED. ON 2LPM O2 VIA NC. IV ACCESS IN LFA, PATENT AND INTACT, NO SIGNS OF REDNESS OR INFILTRATION. ALL NEEDS MET. NO SIGNIFICANT CHANGES THROUGH THE NIGHT. BED IN LOW LOCKED POSITION WITH SIDE RAILS X2. CALL LIGHT WITHIN REACH. PATIENT ADVISED TO USE CALL LIGHT FOR ASSISTANCE. WILL ENDORSE TO AM SHIFT FOR ZOLTAN.
[2020-01-12 06:59] LABS: POTASSIUM 4.3 mmol/L (3.5-5.1)
--- NOTE | 2020-01-12 07:30 | NUR ---
MS RN OPENING NOTES MADE ROUNDS WITH NIGHTSHIFT NURSE, WENT INTO PTS ROOM. PT WAS TALKING ON THE PHONE, I ACKNOWLEDGED HER AND SAID GOOD MORNING. SHE JUST LOOKED AT ME AND CONTINUED TO TALK ON THE PHONE. I TOLD HER POLITELY TO CALL FOR HELP IF SHE NEEDS ANYTHING, I AM ABOUT TO GET REPORT FROM THE GENETICIST NURSE. SHE JUST LOOKED AT ME I WALKED AWAY TO GET REPORT.
--- NOTE | 2020-01-12 07:45 | NUR ---
ROUNDS I WENT BACK TO HER ROOM SHE WAS STILL TALKING ON THE PHONE. NO CARDIAC OR RESP DISTRESS NOTED. NO SOB. BREATHING EVEN AND UNLABORED. NO C/O PAIN OR DISCOMFORT. IV ACCESS NOTED ON LFA G22. NO S/S OF INFECTION OR INFILTRATION NOTED. SAFETY PRECAUTIONS IN PLACE. BED LOCKED AND IN LOW POSITION. AGAIN, I ASKED IF SHE NEEDED ANYTHING. SHE IGNORES ME AND CONTINUES TALKING ON THE PHONE. I WENT BACK TO THE NURSES STATION AND I WAS GOING BACK THE RAIL MANAGER TOLD ME THAT APPARENTLY THE PT CALLED THE BLENDER OPERATOR AND IS REQUESTING FOR ANOTHER NURSE. I WENT BACK TO THE PTS ROOM TO ASK IF EVERYTHING WAS OKAY. SHE STATES, "YEAH. I JUST WANT ANOTHER NURSE. I DONT WANT YOU. I DONT TRUST YOU. I DONT WANNA GET MEDS FROM YOU." I ASKED WHY, AND SHE TELLS ME, "I JUST WANT ANOTHER NURSE." I OFFERED IF THERE IS SOMETHING THAT I COULD DO TO HELP HER, SHE RUDELY STATES, "NO. GET OUT OF MY ROOM." PT SEEMS TO BE IN A VERY PARANOID STATE, SHE THINKS THAT PEOPLE ARE AGAINST HER. CHARGE NURSE NOTIFIED. DR. QUIROGA WAS HERE AND WAS NOTIFIED.
[2020-01-12] MEDS ORDERED: METH4TAB3 PO (08:48)
[2020-01-12] MEDS ORDERED: DOXY100T2 PO (08:54)
[2020-01-12] MEDS ORDERED: MONT10TA22 PO (08:54)
[2020-01-12] MEDS: ENOXAPARIN SODIUM 40 MG/0.4 ML DISP.SYRIN SQ SCH (09:00)
[2020-01-12] MEDS ORDERED: DOXYCYCLINE HYCLATE (100 MG) 100 MG TABLET PO SCH (09:00)
[2020-01-12] MEDS: predniSONE 20 MG TABLET PO SCH (09:00)
--- NOTE | 2020-01-12 09:15 | NUR ---
SWITCH TO ANOTHER RN PT WAS GIVEN TO PRIMITIVO RN PER PT REQUEST TO DE-ESCALATE THE SITUATION. REPORT WAS GIVEN.
[2020-01-12] MEDS: methylPREDNISolone SOD SUCC 40 MG/ML VIAL IV SCH ×2 (09:19→12:36)
[2020-01-12] MEDS: METFORMIN 850 MG TABLET PO SCH (09:19)
[2020-01-12] MEDS: FLUTICASONE PROPIONATE 16 GM BOTTLE NS SCH (09:19)
[2020-01-12 09:20] VITALS: BP 136/79
[2020-01-12] MEDS: LISINOPRIL (20MG) 20 MG TABLET PO SCH (09:20)
[2020-01-12] MEDS: AMLODIPINE BESYLATE 2.5 MG TABLET PO SCH (09:20)
[2020-01-12 09:24] LABS: BAND % (MANUAL) 1 % (0.0-5.0); LYMPHOCYTES % (MANUAL) 10 % (16-48); MONOCYTES % (MANUAL) 6 % (0-11.0); NEUTROPHILS % (MANUAL) 83 (42-76)
--- NOTE | 2020-01-12 09:30 | NUR ---
RN NOTES Received report from Mohini SHAH. Received Patient awake and resting in bed. A/O x 4. VS stable with no acute distress. Breathing even and unlabored on 2LPM via NC with no respiratory distress. Denies pain. No signs and symptoms of pain. 22g PIV on LFA clean, intact, patent and flushing well. Safety precautions in place. Bed locked and set to lowest position with side rails x 2 up. All needs rendered at this time. Call light within reach. Will continue to monitor.
[2020-01-12] MEDS: MORPHINE SULFATE INJ 2 MG/ML DISP.SYRIN IM PRN (09:35)
[2020-01-12] MEDS: GUAIFENESIN/D-METHORPHAN HB 5 ML UDC PO PRN (09:39)
--- NOTE | 2020-01-12 15:36 | NUR ---
MS MAINTENANCE MAN NOTES Patient discharged for home at this time. Patient in stable condition. VS stable with no acute distress. Breathing even and unlabored on 2LPM via NC with no respiratory distress. Denies pain. No signs and symptoms of pain. Skin intact. Medication reconciliation and discharge orders reviewed and explained to Patient. Patient verbalized understanding. All belongings with Patient. Patient will follow up with PCP in 1 week. Escorted Patient to the Lobby for safety. Patient picked up by daughter.
== END 2020-01-12 15:30 | disposition home or self-care (01) | DRG 190 ==
LOC: ER 22:37 → TELE 01-09 04:36 → MED 01-09 10:21
PROVIDERS: ADMIT Internal Medicine; ATTEND Internal Medicine
DX: J44.1 Chronic obstructive pulmonary disease with (acute) exacerbation (principal); N17.0 Acute kidney failure with tubular necrosis; J96.20 Acute and chronic respiratory failure, unspecified whether with hypoxia or hypercapnia; E11.9 Type 2 diabetes mellitus without complications; F41.9 Anxiety disorder, unspecified; E66.9 Obesity, unspecified; J32.0 Chronic maxillary sinusitis; K21.9 Gastro-esophageal reflux disease without esophagitis; I10 Essential (primary) hypertension; Z87.891 Personal history of nicotine dependence; I25.10 Atherosclerotic heart disease of native coronary artery without angina pectoris; J20.9 Acute bronchitis, unspecified; J44.0 Chronic obstructive pulmonary disease with (acute) lower respiratory infection; Z68.28 Body mass index [BMI] 28.0-28.9, adult; Z79.84 Long term (current) use of oral hypoglycemic drugs
CPT/HCPCS: 36415; 70220-TC; 71045-TC; 80048-TC; 80076-TC; 82962-TC; 83880; 84484-TC; 85025-TC; 87081-TC; 94799-TC; A4216; G0378; J0456; J0696; J1650; J1815; J2270; J2405; J2920; J2930; J3480; J3490; J7060

== ENCOUNTER 2021-01-03 08:48 | Emergency (ER) | payer MEDICARE, OTHER ==
[~2021-01-03] VITALS: Ht 162.6 cm; Wt 74.8 kg
[~2021-01-03 08:48] MED LIST changes: +AMLO2.5T2 PO; +DOXY100T2 PO; +FURO-145 PO; +IPRA4AER IH; -LISI-603 PO; +LISI20TA30 PO; +METH4TAB3 PO; +MONT10TA22 PO; -PANT40TA4 PO; +PANT40TA49 PO; -PRED10TA23 PO; -PRED20TA PO; -PRED5TAB48 PO
[2021-01-03] MEDS ORDERED: LORAZEPAM 1 MG TABLET PO ONE (09:30)
[2021-01-03] MEDS ORDERED: LORAZEPAM 1 MG TABLET ONE (09:42)
[2021-01-03 10:47] LABS: BASOPHILS % (AUTO) 0.5 % (0.0-2.0); EOSINOPHILS % (AUTO) 0.5 % (0.0-6.0); HEMATOCRIT 43 % (33-45); HEMOGLOBIN 13.9 g/dL (11.5-14.8); LYMPHOCYTES # (AUTO) 1.8 /CMM (0.8-4.8); LYMPHOCYTES % (AUTO) 19.6 % (20.0-44.0); MEAN CORPUSCULAR HGB CONC 32 g/dl (31.0-36.0); MEAN CORPUSCULAR VOLUME 97 fL (82-100); MONOCYTES # (AUTO) 0.2 /CMM (0.1-1.30); MONOCYTES % (AUTO) 2.3 % (2.0-12.0); NEUTROPHILS % (AUTO) 77.1 % (43.0-81.0); PLATELET COUNT (AUTO) 358 /CMM (150-450); RED BLOOD CELL COUNT(AUTO) 4.48 MIL/uL (4.0-5.2); WHITE BLOOD COUNT (AUTO) 9.1 K/uL (4.3-11.0)
[2021-01-03 10:53] LABS: CALCIUM, SERUM 9.4 mg/dL (8.5-10.1); CARBON DIOXIDE 28 mmol/L (21-32); CHLORIDE 106 mmol/L (98-107); CREATININE 0.9 mg/dL (0.6-1.3); GLUCOSE 138 mg/dL (74-106); POTASSIUM 3.7 mmol/L (3.5-5.1); SODIUM SERUM 143 mmol/L (136-145); UREA NITROGEN, BLOOD 12 mg/dL (7-18)
[2021-01-03] MEDS ORDERED: ACETAMINOPHEN 325 MG TABLET PO ONE (11:00)
[2021-01-03 11:05] LABS: ALANINE AMINOTRANSFERASE 27 U/L (12-78); ALBUMIN 3.6 g/dL (3.4-5.0); ALKALINE PHOSPHATASE 75 U/L (46-116); ASPARTATE AMINOTRANSFERASE 28 U/L (15-37); B-TYPE NATRIURETIC PEPTIDE 130 PG/ML (0-125); BILIRUBIN,DIRECT 0.2 mg/dL (0.0-0.2); BILIRUBIN,TOTAL 0.5 mg/dL (0.2-1.0); TOTAL PROTEIN, SERUM 7.8 g/dL (6.4-8.2)
[2021-01-03] MEDS ORDERED: IBUPROFEN 600 MG TABLET PO ONE (11:30)
[2021-01-03] MEDS ORDERED: IBUPROFEN 600 MG TABLET ONE (11:39)
[2021-01-03 12:27] LABS: BILIRUBIN,URINE NEGATIVE (NEGATIVE); COLOR,URINE YELLOW (YELLOW); LEUKOCYTE ESTERASE ,URINE NEGATIVE (NEGATIVE); NITRITE, URINE NEGATIVE (NEGATIVE); PROTEIN,URINE NEGATIVE (NEGATIVE); UGLUCOSE NEGATIVE (NEGATIVE); UROBILINOGEN,URINE 0.2 EU/dL (0.2)
[2021-01-03 12:32] LABS: BACTERIA,URINE None seen /HPF (None Seen); RBC,URINE 0-2 /HPF (0-2); SQUAMOUS EPITHELIAL CELL,UR Few /HPF (None Seen); WBC,URINE 0-2 /HPF (0-3)
[2021-01-03] MEDS ORDERED: ALBUTEROL FS 2.5 MG/0.5 ML VIAL.NEB NEB ONE (13:30)
[2021-01-03] MEDS ORDERED: IPRATROPIUM NEB FS 0.5 MG/2.5 ML AMPUL.NEB NEB ONE (13:30)
[2021-01-03] MEDS ORDERED: ALBUTEROL FS 2.5 MG/3 ML VIAL.NEB ONE (13:43)
[2021-01-03] MEDS ORDERED: IPRATROPIUM NEB FS 0.5 MG/2.5 ML AMPUL.NEB ONE (13:43)
[2021-01-03 17:07] VITALS: BP 144/86
== END 2021-01-03 16:51 | disposition home or self-care (01) ==
LOC: ER 08:52
DX: J44.1 Chronic obstructive pulmonary disease with (acute) exacerbation (principal); I10 Essential (primary) hypertension; E11.9 Type 2 diabetes mellitus without complications; F41.9 Anxiety disorder, unspecified; Z90.49 Acquired absence of other specified parts of digestive tract; Z88.1 Allergy status to other antibiotic agents; Z88.8 Allergy status to other drugs, medicaments and biological substances; Z88.5 Allergy status to narcotic agent; Z79.899 Other long term (current) drug therapy; Z79.84 Long term (current) use of oral hypoglycemic drugs
CPT/HCPCS: 36415; 71045-TC; 80048-TC; 80076-TC; 81001; 83880; 84484-TC; 85025-TC; 94799-TC

== ENCOUNTER 2021-04-08 02:46 | Emergency (ER) | payer MEDICARE, OTHER ==
[~2021-04-08] VITALS: Ht 162.6 cm; Wt 69.4 kg
[2021-04-08 03:26] VITALS: BP 142/96
[2021-04-08] MEDS ORDERED: FLUC200T PO (06:15)
[2021-04-08] MEDS ORDERED: KETOROLAC TROMETHAMINE INJ 30 MG/ML VIAL ONE (06:18)
[2021-04-08] MEDS ORDERED: KETOROLAC TROMETHAMINE INJ 60 MG/2 ML VIAL IM ONE (06:30)
== END 2021-04-08 06:00 | disposition home or self-care (01) ==
LOC: ER 02:47
DX: B36.8 Other specified superficial mycoses (principal); I10 Essential (primary) hypertension; J44.9 Chronic obstructive pulmonary disease, unspecified; F41.9 Anxiety disorder, unspecified; Z90.49 Acquired absence of other specified parts of digestive tract; Z88.1 Allergy status to other antibiotic agents; Z88.5 Allergy status to narcotic agent; Z79.899 Other long term (current) drug therapy
CPT/HCPCS: 96372; 99283; J1885